=== PATIENT | male | born 1945 | race Caucasian/White ===

== ENCOUNTER 2020-07-01 10:30 | Emergency (ER) | payer MEDICAID, MEDICARE, OTHER ==
[~2020-07-01] VITALS: Ht 182.9 cm; Wt 86.6 kg
--- NOTE | 2020-07-01 10:30 | NUR ---
PT BIBA RA102 "[place] weak/dizzy/out of breath while walking to bus stop" PT IS AAOX3, NOT IN RESPIRATORY DISTRESS, HOOKED TO MANAGER OF ALLIED HEALTH SERVICES, KEPT RESTEDA ND COMFORTABLE. WILL CONTINUE TO MONITOR.
--- NOTE | 2020-07-01 10:40 | NUR ---
SEEN AND EXAMINED BY .
--- NOTE | 2020-07-01 10:50 | NUR ---
IV LINE ESTABLISHED BLOOD DRAWN AND SENT TO LAB.
--- NOTE | 2020-07-01 10:53 | NUR ---
URINAL GIVEN BUT UNABLE TO PROVIDE URINE SPECIMEN THIS TIME.
[2020-07-01 10:54] LABS: BASOPHILS # (AUTO) 0.1 /CMM (0.0-0.2); EOSINOPHILS % (AUTO) 0.4 % (0.0-6.0); HEMATOCRIT 43 % (39-51); HEMOGLOBIN 14.4 g/dL (13.5-17.5); LYMPHOCYTES # (AUTO) 1.1 /CMM (0.8-4.8); LYMPHOCYTES % (AUTO) 14.6 % (20.0-44.0); MEAN CORPUSCULAR HGB CONC 34 g/dl (31.0-36.0); MEAN CORPUSCULAR VOLUME 100 fL (80-96); MONOCYTES # (AUTO) 0.5 /CMM (0.1-1.30); MONOCYTES % (AUTO) 6.1 % (2.0-12.0); NEUTROPHILS # (AUTO) 5.9 /CMM (1.8-8.9); NEUTROPHILS % (AUTO) 77.9 % (43.0-81.0); PLATELET COUNT (AUTO) 284 /CMM (150-450); RED BLOOD CELL COUNT(AUTO) 4.29 MIL/uL (4.5-6.0); WHITE BLOOD COUNT (AUTO) 7.6 K/uL (4.3-11.0)
[2020-07-01] MEDS ORDERED: IV NS 0.9% 1,000 ML BAG IV ONE (11:00)
[2020-07-01 11:04] LABS: CALCIUM, SERUM 9.2 mg/dL (8.5-10.1); CARBON DIOXIDE 25 mmol/L (21-32); CHLORIDE 103 mmol/L (98-107); CREATININE 1.3 mg/dL (0.6-1.3); GLUCOSE 229 mg/dL (74-106); POTASSIUM 4.3 mmol/L (3.5-5.1); SODIUM SERUM 138 mmol/L (136-145); UREA NITROGEN, BLOOD 11 mg/dL (7-18)
[2020-07-01 11:09] LABS: ALANINE AMINOTRANSFERASE 17 U/L (12-78); ALBUMIN 3.6 g/dL (3.4-5.0); ALKALINE PHOSPHATASE 70 U/L (46-116); ASPARTATE AMINOTRANSFERASE 29 U/L (15-37); BILIRUBIN,DIRECT 0.3 mg/dL (0.0-0.2); BILIRUBIN,TOTAL 2.1 mg/dL (0.2-1.0); TOTAL PROTEIN, SERUM 6.6 g/dL (6.4-8.2)
--- NOTE | 2020-07-01 11:30 | NUR ---
CALLED LAB TO MAGNESIUM BLOOD TEST PER BRITTANI GOYAL.
--- NOTE | 2020-07-01 12:55 | NUR ---
PT AMBULATED ON STEADY GAIT W/O ASSIST. VERBALIZED FEELING BETTER THAN EARLIER. MD MADE AWARE.
--- NOTE | 2020-07-01 13:03 | NUR ---
Patient discharged to home in stable condition. Written and verbal after care instructions given. Patient verbalizes understanding of instruction. Pt ambulatory with a steady gait. Pt was provided with meal.
[2020-07-01 13:04] VITALS: BP 153/85
== END 2020-07-01 13:04 | disposition home or self-care (01) ==
LOC: ER 10:35
DX: E86.0 Dehydration (principal); R73.9 Hyperglycemia, unspecified; R53.1 Weakness; I10 Essential (primary) hypertension
CPT/HCPCS: 36415; 71045; 80048; 80076; 83735; 84484; 85025; 85730; 93005 ×2; 96360; 99285; J7030

== ENCOUNTER 2020-11-02 09:59 | Inpatient (IN) | payer MEDICARE, OTHER ==
[~2020-11-02] VITALS: Ht 188 cm; Wt 93.0 kg
--- NOTE | 2020-11-02 10:00 | NUR ---
KAMERON 881 FROM HOME C/O L FOOT INFECTION. PT IS AAOX4, NOT IN RESPIRATORY DISTRESS, HOOKED TO TINWARE LITHOGRAPH PRESS OPERATOR, KEPT RESTED AND COMFORTABLE. WILL CONTINUE TO MONITOR.
--- NOTE | 2020-11-02 10:16 | NUR ---
SEEN AND EXAMINED BY
[2020-11-02] MEDS ORDERED: PIPERACILLIN /TAZOBACTAM 3.375 G in IV D5W 50 ML IV ONE (10:30)
[2020-11-02] MEDS ORDERED: VANCOMYCIN 1 GM in IV D5W 250 ML IV ONE (10:30)
[2020-11-02 10:41] LABS: BASOPHILS # (AUTO) 0.3 /CMM (0.0-0.2); BASOPHILS % (AUTO) 1.7 % (0.0-2.0); EOSINOPHILS % (AUTO) 0.4 % (0.0-6.0); HEMATOCRIT 33 % (39-51); HEMOGLOBIN 10.9 g/dL (13.5-17.5); LYMPHOCYTES # (AUTO) 0.7 /CMM (0.8-4.8); LYMPHOCYTES % (AUTO) 3.7 % (20.0-44.0); MEAN CORPUSCULAR HGB CONC 33 g/dl (31.0-36.0); MEAN CORPUSCULAR VOLUME 96 fL (80-96); MONOCYTES % (AUTO) 5.4 % (2.0-12.0); NEUTROPHILS # (AUTO) 16.1 /CMM (1.8-8.9); NEUTROPHILS % (AUTO) 88.8 % (43.0-81.0); PLATELET COUNT (AUTO) 549 /CMM (150-450); RED BLOOD CELL COUNT(AUTO) 3.47 MIL/uL (4.5-6.0); WHITE BLOOD COUNT (AUTO) 18.2 K/uL (4.3-11.0)
[2020-11-02 10:48] LABS: CREATININE 0.9 mg/dL (0.6-1.3); POTASSIUM 3.6 mmol/L (3.5-5.1)
--- NOTE | 2020-11-02 10:52 | NUR ---
TANK MAKER WOOD AT BEDSIDE FOR XRAY.
--- NOTE | 2020-11-02 10:55 | NUR ---
CALLED PHARMACY FOR IV ANTIBIOTIC.
--- NOTE | 2020-11-02 11:03 | NUR ---
COVID SWAB OBTAINED AND SENT TO LAB.
[2020-11-02] MEDS ORDERED: ACET-868 PO (11:17)
--- NOTE | 2020-11-02 11:24 | NUR ---
MOVE PACKET TURNED IN, NURSING SUP NOTIFIED FOR BED REQUEST.
[2020-11-02] MEDS ORDERED: TEMAZEPAM 15 MG CAPSULE PO PRN (13:00)
[2020-11-02] MEDS ORDERED: MAGNESIUM HYDROXIDE 30 ML UDC PO PRN (13:00)
[2020-11-02] MEDS ORDERED: ACETAMINOPHEN 325 MG TABLET PO PRN (13:00)
[2020-11-02] MEDS ORDERED: DEXTROSE 50%-WATER 50 ML DISP.SYRIN IV PRN (13:00)
[2020-11-02] MEDS ORDERED: Z GUARD REMEDY 2 OZ OINT TP PRN (13:00)
[2020-11-02] MEDS ORDERED: ONDANSETRON HCL/PF 4 MG/2 ML VIAL IVP PRN (13:00)
--- NOTE | 2020-11-02 14:24 | NUR ---
PATIENT AMBULATORY WENT TO RESTROOM.
[2020-11-02] MEDS ORDERED: HYDROCODONE/APAP 5/325MG TABLET ONE (18:21)
[2020-11-02] MEDS: HYDROCODONE/APAP 5/325MG TABLET PO PRN ×2 (18:22→21:54)
[2020-11-02] MEDS: PIPERACILLIN /TAZOBACTAM 3.375 G in IV D5W 50 ML IV SCH (18:53)
[2020-11-02] MEDS: BLOOD SUGAR DIAGNOSTIC 1 EACH STRIP IN SCH ×2 (19:01→21:54)
[2020-11-02 19:25] LABS: EOSINOPHILS % (MANUAL) 1 % (0-4); LYMPHOCYTES % (MANUAL) 4 % (16-48); MONOCYTES % (MANUAL) 4 % (0-11.0); NEUTROPHILS % (MANUAL) 91 (42-76)
--- NOTE | 2020-11-02 20:18 | NUR ---
MS BED: 324-2
--- NOTE | 2020-11-02 20:25 | NUR ---
REPORT GIVEN TO BOONE
[2020-11-02 21:00] VITALS: BP 174/85
--- NOTE | 2020-11-02 21:06 | NUR ---
PT TRANSFERED. VSS.
--- NOTE | 2020-11-02 21:35 | NUR ---
RN NOTES RECEIVED PT. FROM ER WITH DX. OF LEFT FOOT CELLULITIS, A/OX4, NOT IN DISTRESS, ADMISSION INSTRUCTIONS WAS RENDERED, CALL LIGHT WITHIN REACH, SIDERAILSUPX2, CONTINUE TO MONITOR
--- NOTE | 2020-11-02 22:00 | NUR ---
RN NOTES COMPLAINED OF 5TH TOE PAIN- NORCO 1 TAB PO GIVEN ORDERED, V/S STABLE
[2020-11-02] MEDS: INSULIN REGULAR, HUMAN 100 UNIT/ML 3 ML VIAL SQ PRN (22:02)
[2020-11-02] MEDS: IV NS 0.9% 1,000 ML IV PRN (22:48)
[2020-11-02] MEDS: VANCOMYCIN 1 GM in IV D5W 250 ML IV SCH (22:49)
[2020-11-03] VITALS (16 sets, daily range): BP systolic 141–166; BP diastolic 63–90
[2020-11-03] MEDS: PIPERACILLIN /TAZOBACTAM 3.375 G in IV D5W 50 ML IV SCH ×4 (00:02→19:29)
[2020-11-03] MEDS: HYDROCODONE/APAP 5/325MG TABLET PO PRN ×3 (01:59→23:32)
--- NOTE | 2020-11-03 02:00 | NUR ---
RN NOTES COMPLAINED OF PAIN ON HIS LEFT FOOT 5TH TOE GANGRENE , NORCO 1 TAB PO GIVEN ORDERED, V/S STABLE
--- NOTE | 2020-11-03 05:33 | NUR ---
RN NOTES COMPLAINED OF HEADACHE- TYLENOL 650 MG PO GIVEN ORDERED
[2020-11-03] MEDS: INSULIN REGULAR, HUMAN 100 UNIT/ML 3 ML VIAL SQ PRN ×2 (06:14→22:12)
--- NOTE | 2020-11-03 06:27 | NUR ---
RN NOTES PT.COMPLAINED OF LEFT FOOT PAIN0 NORCO 1 TAB PO GIVEN ORDERED, MORNING CARE RENDERED, WILL ENDORSE TO DAYSHIFT NURSE TO GET A LOVENOX ORDER FOR DVT PROPHYLAXIS, PT. IS NOT ON DISTRESS, CALL LIGHT WITHIN REACH, SIDERAILSUPX2, PT.NEEDS ATTENDED
[2020-11-03 07:19] LABS: BASOPHILS # (AUTO) 0.1 /CMM (0.0-0.2); BASOPHILS % (AUTO) 0.8 % (0.0-2.0); EOSINOPHILS % (AUTO) 1.1 % (0.0-6.0); HEMATOCRIT 31 % (39-51); HEMOGLOBIN 10.4 g/dL (13.5-17.5); LYMPHOCYTES # (AUTO) 1.1 /CMM (0.8-4.8); LYMPHOCYTES % (AUTO) 6.8 % (20.0-44.0); MEAN CORPUSCULAR HGB CONC 34 g/dl (31.0-36.0); MEAN CORPUSCULAR VOLUME 94 fL (80-96); MONOCYTES % (AUTO) 6.2 % (2.0-12.0); NEUTROPHILS # (AUTO) 13.3 /CMM (1.8-8.9); NEUTROPHILS % (AUTO) 85.1 % (43.0-81.0); PLATELET COUNT (AUTO) 521 /CMM (150-450); WHITE BLOOD COUNT (AUTO) 15.7 K/uL (4.3-11.0)
--- NOTE | 2020-11-03 07:48 | NUR ---
MS HOPPER OPEN NOTES PATIENT IS A/O X 4 WITH NO SIGNS OF DISTRESS IN ROOM AIR. NO COMPLAIN OF PAIN AT THIS MOMENT. IV R AC #18G RUNNING NS @ 75 ML/HR. NO COMPLAIN OF PAIN AT THIS TIME. SAFETY MEASURES ARE APPLIED. BED IS IN LOWEST LOCKED POSITION WITH SIDE RAILS UP X 2 FOR SAFETY. CALL LIGHT IS WITHIN REACH. WILL CONTINUE TO MONITOR.
[2020-11-03 07:55] LABS: CALCIUM, SERUM 8.1 mg/dL (8.5-10.1); CREATININE 1.1 mg/dL (0.6-1.3); MAGNESIUM 2.1 mg/dL (1.8-2.4); POTASSIUM 3.4 mmol/L (3.5-5.1)
[2020-11-03 08:02] LABS: THYROID STIMULATING HORMONE 2.298 uIU/mL (0.358-3.74)
[2020-11-03] MEDS: BLOOD SUGAR DIAGNOSTIC 1 EACH STRIP IN SCH ×4 (08:12→22:17)
--- NOTE | 2020-11-03 08:58 | NUR ---
WOUND CARE CONSULT: PT PRESENTS WITH REDNESS TO LEFT FOOT AND DRY BLACK NECROTIC TISSUE TO LEFT 5TH TOE, PRESENT ON ADMISSION. ODOR NOTED. DR DEY NOTIFIED OF DPM CONSULT REQUEST. PT IS INDEPENDENT WITH BED MOBILITY AND IS CONTINENT. MD IN AGREEMENT WITH PLAN OF CARE.
[2020-11-03] MEDS ORDERED: POTASSIUM CHLORIDE 20 MEQ TAB.PRT.SR PO SCH (10:30)
[2020-11-03] MEDS ORDERED: LIDOCAINE 1% INJ 50 ML MDV IJ ONE (11:30)
[2020-11-03] MEDS: MORPHINE SULFATE INJ 2 MG/ML DISP.SYRIN IV PRN (11:51)
[2020-11-03] MEDS: VANCOMYCIN 1 GM in IV D5W 250 ML IV SCH ×2 (11:59→22:59)
[2020-11-03] MEDS ORDERED: IV NS 0.9% 1,000 ML ONE (12:52)
[2020-11-03] MEDS ORDERED: IODIXANOL 150 ML IV ONE ×2 (12:53→16:46)
--- NOTE | 2020-11-03 14:20 | NUR ---
PATIENT LEFT TO CNP.
[2020-11-03] MEDS ORDERED: LIDOCAINE HCL/MPF 1% 30 ML VIAL IJ ONE (14:59)
[2020-11-03] MEDS ORDERED: MIDAZOLAM HCL 2 MG/2ML VIAL ONE ×2 (15:03→16:39)
[2020-11-03] MEDS ORDERED: FENTANYL PF 100MCG/2ML AMPUL ONE (15:04)
[2020-11-03] MEDS ORDERED: HEPARIN SODIUM, PORCINE 1,000 UNIT/ML VIAL ONE ×2 (15:41→17:16)
[2020-11-03] MEDS ORDERED: IODIXANOL 320MG/ML 50 ML IV ONE (15:48)
[2020-11-03] MEDS ORDERED: CLOPIDOGREL BISULFATE 300 MG TABLET ONE (16:05)
[2020-11-03] MEDS ORDERED: ASPIRIN 325 MG TABLET ONE (16:05)
[2020-11-03] MEDS ORDERED: hydrALAZINE HCL IV 20 MG VIAL ONE (16:38)
[2020-11-03] MEDS ORDERED: diphenhydrAMINE HCL 50 MG/ML VIAL ONE (16:52)
[2020-11-03] MEDS ORDERED: NITROGLYCERIN ICAR 1,000 MCG/10 ML VIAL ICAR ONE ×2 (17:15→17:37)
[2020-11-03] MEDS ORDERED: IODIXANOL 320MG/ML 0 ML IV ONE (17:40)
[2020-11-03] MEDS ORDERED: HEPARIN INFUSION/D5W 500 ML IV ONE (17:47)
--- NOTE | 2020-11-03 18:15 | NUR ---
UNABLE TO DO BLOOD SUGAR CHECK, PATIENT IS STILL CURRENTLY IN SAND BLASTER.
--- NOTE | 2020-11-03 19:09 | NUR ---
PATIENT TRANSFERRED TO ICU GAVE REPORT TO WARD URIARTE FOR CONTINUITY OF CARE. ALL BELONGINGS WERE TAKEN TO PATIENT'S ROOM ICU.
--- NOTE | 2020-11-03 19:30 | NUR ---
RECEIVED PT FROM ACUTE CARE PHYSICIAN FOR STENT PLACEMENT, IN STABLE CONDITION. PT IS ALERT AND VERBALLY RESPONSIVE, ORIENTED X4. NOT IN ANY ACUTE DISTRESS. ON HEPARIN DRIP ORDERED. ALL POST OP ORDERS FAXED TO PHARMACY. IV#18 ON RIGHT AC AND IV#18 ON LEFT FOREARM INTACT AND FLUSHED WELL. WILL ENDORSE TO NEXT SHIFT FOR ARELY.
--- NOTE | 2020-11-03 19:35 | NUR ---
RN NOTE RECEIVED PT IN BED SLEEPING IN SEMIFOWLER'S POSITION. RESPIRATIONS EVEN AND UNLABORED VIA ROOM AIR. ON BEDSIDE MONITOR SHOWING STABLE VITAL SIGNS. ATTEMPTED TO WAKE PT UP MULTIPLE TIMES BUT PT DID NOT RESPOND AND CONTINUED TO SLEEP. APPLIED STERNAL RUB TO PATIENT TO WHICH PT WOKE UP ANGRILY. PT IS ALERT AND ORIENTED X 4, DENIES PAIN OR DISCOMFORT. NOTED NS @75ML/HOUR RUNNING ON LEFT FORE ARM IV AND WITH HEPARIN DRIP RUNNING AT 1550 UNITS PER HOUR VIA RIGHT AC IV. IV LINES PATENT AND WITHOUT COMPLICATIONS NOTED AT SITE. POST FEMORAL CATH SITE WITH INTACT DRESSING. NO BLEEDING NOTED. LEFT FOOT WRAPPED IN KERLIX. WEAK PULSE PRESENT BUT SKIN IN WARM WITH INTACT SENSATION. PT ABLE TO MOVE FOOT AND WIGGLE TOES UPON COMMAND. PLAN OF CARE DISCUSSED. NSR ON THE MONITOR, CALL LIGHT WITHIN REACH, SAFETY MEASURES IN PLACE PER PROTOCOL, BED ALARM ON, SIDE RAILS UP X 2, BED LOCKED AND IN LOW POSITION, WILL MONITOR PATIENT CLOSELY.
[2020-11-03] MEDS: IV NS 0.9% 1,000 ML IV PRN (19:49)
[2020-11-03] MEDS: HEPARIN INFUSION/D5W 500 ML IV PRN (20:58)
[2020-11-03] MEDS ORDERED: ENOXAPARIN SODIUM 80 MG/0.8 ML DISP.SYRIN SQ SCH (21:00)
[2020-11-04] VITALS (38 sets, daily range): BP systolic 133–179; BP diastolic 61–99
[2020-11-04] MEDS: PIPERACILLIN /TAZOBACTAM 3.375 G in IV D5W 50 ML IV SCH ×5 (00:03→23:33)
--- NOTE | 2020-11-04 00:15 | NUR ---
RN NOTE PTT STILL NOT DRAWN. CALLED LAB AND STATES THEY WILL COME SOON THEY CAN.
--- NOTE | 2020-11-04 00:38 | NUR ---
RN NOTE MADE FOLLOW UP CALL TO LAB, STATES THEY WILL COME SOON THEY CAN.
--- NOTE | 2020-11-04 01:55 | NUR ---
RN NOTE PTT RESULT CAME BACK 134.6. HEPARIN DRIP STOPPED. PAGED GLAZIER SUPERVISOR. NO BLEEDING NOTED. Addendum: 11/04/20 at 0319 by RAFA SNOW RN @0210 DR. VALENZUELA WAS NOTIFIED WHO STATED THAT [facility] IS THE ONE TO MAKE ADJUSTMENTS AND THAT WE SHOULD NOT BE PAGING IN THE MIDDLE OF THE NIGHT FOR THIS. STATES TO HOLD HEPARIN DRIP AND CALL [facility]. @0220 SPOKE TO LEAH FROM [facility] WHO STATES THAT THEY CANNOT MAKE ADJUSTMENTS ACCORDING TO THEIR PROTOCOL FOR PTT OF 134.6 AND THAT IS THE ONE TO MAKE ADJUSTMENTS. @0230 DR. VALENZUELA WAS PAGED AGAIN. AWAITING CALL BACK.
--- NOTE | 2020-11-04 03:25 | NUR ---
RN NOTE DR. VALENZUELA CALLED BACK WITH ORDER TO RESTART HEPARIN DRIP AT 0600 AT 775UNITS/HOUR then repeat ptt at 0700. ORDER NOTED AND CARRIED OUT.
[2020-11-04] MEDS: HYDROCODONE/APAP 5/325MG TABLET PO PRN ×4 (04:15→21:19)
[2020-11-04] MEDS: IV NS 0.9% 1,000 ML IV PRN ×2 (04:41→21:26)
[2020-11-04 05:15] LABS: BASOPHILS # (AUTO) 0.2 /CMM (0.0-0.2); BASOPHILS % (AUTO) 0.9 % (0.0-2.0); HEMATOCRIT 30 % (39-51); HEMOGLOBIN 9.8 g/dL (13.5-17.5); LYMPHOCYTES # (AUTO) 1.3 /CMM (0.8-4.8); LYMPHOCYTES % (AUTO) 6.8 % (20.0-44.0); MEAN CORPUSCULAR HGB CONC 33 g/dl (31.0-36.0); MEAN CORPUSCULAR VOLUME 95 fL (80-96); MONOCYTES # (AUTO) 1.4 /CMM (0.1-1.30); MONOCYTES % (AUTO) 7.1 % (2.0-12.0); NEUTROPHILS # (AUTO) 16.2 /CMM (1.8-8.9); NEUTROPHILS % (AUTO) 84.2 % (43.0-81.0); PLATELET COUNT (AUTO) 502 /CMM (150-450); RED BLOOD CELL COUNT(AUTO) 3.12 MIL/uL (4.5-6.0); WHITE BLOOD COUNT (AUTO) 19.2 K/uL (4.3-11.0)
[2020-11-04 05:18] LABS: CALCIUM, SERUM 7.9 mg/dL (8.5-10.1); CREATININE 1.3 mg/dL (0.6-1.3); MAGNESIUM 2.2 mg/dL (1.8-2.4); PHOSPHORUS 3.4 mg/dL (2.5-4.9); POTASSIUM 3.5 mmol/L (3.5-5.1)
[2020-11-04 05:32] LABS: THYROID STIMULATING HORMONE 2.259 uIU/mL (0.358-3.74); URIC ACID 4.7 mg/dL (2.6-7.2)
--- NOTE | 2020-11-04 07:07 | NUR ---
RN NOTE NO ACUTE CHANGES OBSERVED OVERNIGHT. PT SLEEPING IN BED COMFORTABLY BUT EASILY AROUSABLE. ON ROOM AIR. RESPIRATIONS UNLABORED. NO SIGNS OF DISCOMFORT. VITAL SIGNS VIA BEDSIDE MONITOR STABLE. ONGOING HEPARIN DRIP INFUSING. NO SIGNS OF UNUSUAL BLEEDING NOTED. WITH NS @75ML/HOUR RUNNING ORDERED. IV LINES BOTH PATENT AND INTACT WITHOUT SIGNS OF COMPLICATIONS NOTED AT SITES. URINAL AT BEDSIDE REACHABLE. ALL NEEDS MET AND ATTENDED TO. SAFETY MEASURES IN PLACE PER PROTOCOL, ENDORSED TO MORNING RN FOR ARELY.
--- NOTE | 2020-11-04 07:30 | NUR ---
PT. AWAKE, ORIENTED , DENIES DISCOMFORT AT THIS TIME. SR 80'S ON MONITOR. SBP>150. PN RA WITH SATS 98%. ONGOING HEPARIN DRIP AT 775 U/HR, NO SIGNS OF BLEEDING. RIGHT FEMORAL SHEATH INPLACED, DRESSING INTACT WITH NO SIGNS OF BLEEDING. LEFT FOOT DRESSING INTACT, CLEAN AND DRY. PULSES PALPABLE.
[2020-11-04] MEDS: BLOOD SUGAR DIAGNOSTIC 1 EACH STRIP IN SCH ×4 (08:27→21:29)
[2020-11-04] MEDS: CLOPIDOGREL BISULFATE 75 MG TABLET PO SCH (08:51)
[2020-11-04] MEDS: ASPIRIN 325 MG TABLET PO SCH (08:51)
[2020-11-04] MEDS: INSULIN REGULAR, HUMAN 100 UNIT/ML 3 ML VIAL SQ PRN ×3 (08:55→21:30)
--- NOTE | 2020-11-04 09:30 | NUR ---
FFUP PTT- NO RESULTS YET AT THIS TIME.
[2020-11-04 10:09] LABS: IRON, SERUM 24 ug/dl (50-175); TOTAL IRON BINDING CAPACITY 123 ug/dl (250-450)
--- NOTE | 2020-11-04 11:00 | NUR ---
PTT -44.1- PER PHARMACIST JOLIE, YARIEL FURTHER BOLUS AND DOSE ADJUSTMENT AT THIS TIME . PTT ORDERED FOR 12 NOON. AWAITS RESULTS FOR ADJUSTMENT.
[2020-11-04 11:02] LABS: FERRITIN 817 ng/mL (8-388)
[2020-11-04] MEDS ORDERED: HEPARIN SODIUM, PORCINE 5000 UNITS/1 ML VIAL IV ONE ×2 (11:30→14:00)
--- NOTE | 2020-11-04 11:45 | NUR ---
C/O LEFT FOOT PAIN-REQUESTED FOR NORCO -GIVEN ORDERED PRN.
[2020-11-04] MEDS: VANCOMYCIN 1 GM in IV D5W 250 ML IV SCH ×2 (11:46→22:30)
--- NOTE | 2020-11-04 12:45 | NUR ---
SPOKE TO DR. DEY RE: MRI ORDER. PER MD-OKAY TO RESKED MRI ON FRIDAY POST PROCEDURE. SPOKE TO HEAD HOST/HOSTESS.
--- NOTE | 2020-11-04 14:00 | NUR ---
PTT-42.7-HEPARIN 3400UNITS BOLUS GIVEN HEPARIN DRIP INCREASED TO 925 U/HR PER PROTOCOL. PTT AT 1999.
--- NOTE | 2020-11-04 15:45 | NUR ---
SEEN AND EXAMINED BY DR. SVETA GOYAL SPOKE TO PATIENT REGARDING CONDITION AND PLAN OF CARE.
--- NOTE | 2020-11-04 16:15 | NUR ---
SEEN AND EXAMINED BY GAEL BARRIGA-PATIENT UPDATE GIVEN.
--- NOTE | 2020-11-04 18:45 | NUR ---
PATIENT WITHOUT SIGNIFICANT CHANGE. NO SIGNS OF BLEEDING. HEPARIN GTT AT 925 U/HR PER PROTOCOL. NORCO PRN FOR LEFT FOOT PAIN CONTROLLED. SATS 100% ON RA.
--- NOTE | 2020-11-04 19:15 | NUR ---
"RN OPENING NOTES: RECEIVED PT A/OX4 IN BED RESTING COMFORTABLY. PATIENT IN NO S/SX OF ACUTE DISTRESS AT THIS TIME. NO SOB NOTED. PATIENT'S BREATHING IS EVEN AND UNLABORED. PATIENT IS ON ROOM AIR; TOLERATING WELL; 02 SAT AT100% AT THE TIME OF RECEIVED. PATIENT ON TELE MONITORING READING SINUS RHYTHM HR IS @70s AT THE TIME OF RECEIVED. NOTED IV SITE ON R AC # 18 AND L FA ;PATENT, INTACT AND FLUSHING WELL; NO S/S OF INFECTION OR INFILTRATION. WITH IV FLUID RUNNING ORDERED. PATIENT HAS ONGOING HEPARIN DRIP @925 UNITS/HR | 18.5MLS/HR; INFUSING PER PROTOCOL. PATIENT IS ON CONSISTENT CARB DIET. PT AMBULATORY WITH ASSIST. PATIENT HAS L 5TH TOE (GANGRENE) AND l SACRAL REDNESS ; WILL ADDRESS PER WOUND CARE ORDER. SAFETY MEASURES HAVE BEEN PROVIDED AND IMPLEMENTED. PATIENT BED ALARM IS ON. HEAD OF BED ELEVATED. BED IS LOCKED, IN LOWEST POSITION AND SIDE RAILS UP. CALL LIGHT WITHIN REACH OF THE PATIENT. APPLICABLE ISOLATION PRECAUTIONS IN PLACE. WILL CONTINUE TO MONITOR AND REASSESS FOR ANY CHANGES AND WILL CARRY OUT ANY ONGOING AND ACTIVE MD ORDER."
--- NOTE | 2020-11-04 20:15 | NUR ---
RN NOTES CALLED LAB TO F/U FOR THE SCHEDULED BLOOD DRAW FOR APTT @1999, S/W MAURY HE SAID HE WILL ENDORSE TO STAFF. VISUAL COMMUNICATIONS INSTRUCTOR MADE AWARE.
--- NOTE | 2020-11-04 21:15 | NUR ---
RN NOTES AT 2044 APPT RESULT CAME OUT 48.4, NO CHANGES TO HEPARIN INFUSION DOSE RATE PER PROTOCOL; CURRENT DOSE RATE IS @ 925UNITS/HR; 18.5MLS/HR. STABILIZER OPERATOR MADE AWARE. WILL CONTINUE TO MONITOR AND ASSESS THROUGHOUT THE SHIFT.
--- NOTE | 2020-11-04 22:00 | NUR ---
RN NOTES PATIENT REMAINS IN NO ACUTE RESPIRATORY DISTRESS AT THIS TIME, NO CHANGES TO CONDITION/STATUS. CHANNELING MACHINE OPERATOR WELL AWARE. WILL CONTINUE TO MONITOR AND REASSESS FOR ANY CHANGES THROUGHOUT THE SHIFT
[2020-11-05] VITALS (35 sets, daily range): BP systolic 121–176; BP diastolic 62–104
--- NOTE | 2020-11-05 00:05 | NUR ---
RN NOTES WOUND CARE RENDERED; PATIENT TOLERATED WELL. V/S WNL. BRAZER CONTROLLED ATMOSPHERIC FURNACE MADE AWARE. WILL CONTINUE TO MONITOR AND REASSESS THROUGHOUT THE SHIFT.
[2020-11-05] MEDS: HYDROCODONE/APAP 5/325MG TABLET PO PRN ×4 (01:19→16:01)
--- NOTE | 2020-11-05 01:30 | NUR ---
CHANGE OF LINE NOTED IV LINE ON R AC TO BE DISLODGED AND NON-PATENT. FACILITATED CHANGE AND REINSERTION OF IV LINE @ L HAND #22. MAINTAINER SEWER AND WATERWORKS MADE AWARE. WILL CONTINUE TO MONITOR AND ASSESS
--- NOTE | 2020-11-05 02:40 | NUR ---
RN NOTES COMMUNICATED WITH NIRMALA GOYAL AND INFORMED MEIR THAT PT HAS EPISODES OF HIGH BP AND NO PRN MEDS TO ADDRESS HIGH BLOOD PRESSURE ALSO INFORMED MD THAT PT DONT TAKE ANY BP MEDS. NIRMALA GOYAL ORDERED: CLONIDINE 0.1MG Q6 PRN SBP>150. ORDER SECURED AND WILL CARRY OUT REQUESTED . PRESSER HAND MADE AWARE. WILL CONTINUE TO MONITOR AND ASSESS THROUGHTOUT THE SHIFT.
[2020-11-05] MEDS: CLONIDINE HCL 0.1 MG TABLET PO PRN ×2 (04:13→17:10)
--- NOTE | 2020-11-05 04:15 | NUR ---
RN NOTES PATIENT BLOOD PRESSURE @0330 : 162/80 AND AT 399 156/77, ADMINISTERED CLONIDINE 0.1MG Q6 PRN SBP>150. SKATING RINK ICE MAKER MADE AWARE. WILL CONTINUE TO MONITOR AND ASSESS THROUGHOUT THE SHIFT. Addendum: 11/05/20 at 0505 by JIMY ELAINE RN RN RE-CHECKED FOR PT'S BP FOLLOWS: 0430: 151/70 AND 0500: 149/74. WILL CONTINUE TO MONITOR AND ASSESS THROUGHOUT THE SHIFT.
--- NOTE | 2020-11-05 05:00 | NUR ---
RN NOTES PATIENT REMAINS IN NO ACUTE RESPIRATORY DISTRESS AT THIS TIME, NO CHANGES TO CONDITION/STATUS. DIRECTOR OF INCOME TAX WELL AWARE. WILL CONTINUE TO MONITOR AND REASSESS FOR ANY CHANGES THROUGHOUT THE SHIFT
--- NOTE | 2020-11-05 05:00 | NUR ---
RN NOTES NO CHANGE IN PATIENT CONDITION AT THIS TIME PATIENT VITALS STABLE, NO SIGNS OF ACUTE RESPIRATORY DISTRESS. JOE HOPPER MADE AWARE. WILL CONTINUE TO MONITOR AND REASSESS FOR ANY CHANGES THROUGHOUT THE SHIFT. RT OBTAINED SPECIMEN FOR RESPIRATORY CULTURE C GRAM STAIN. JOE HOPPER MADE AWARE. Addendum: 11/05/20 at 0511 by JIMY ELAINE RN ERROR : WRONG PT'S CHART -PLEASE DISREGARD NOTES
[2020-11-05] MEDS: HEPARIN INFUSION/D5W 500 ML IV PRN (05:01)
[2020-11-05] MEDS: PIPERACILLIN /TAZOBACTAM 3.375 G in IV D5W 50 ML IV SCH ×4 (05:03→23:40)
[2020-11-05 05:28] LABS: BASOPHILS # (AUTO) 0.1 /CMM (0.0-0.2); BASOPHILS % (AUTO) 0.4 % (0.0-2.0); EOSINOPHILS % (AUTO) 2.3 % (0.0-6.0); HEMATOCRIT 26 % (39-51); HEMOGLOBIN 8.8 g/dL (13.5-17.5); LYMPHOCYTES # (AUTO) 1.2 /CMM (0.8-4.8); LYMPHOCYTES % (AUTO) 6.2 % (20.0-44.0); MEAN CORPUSCULAR HGB CONC 33 g/dl (31.0-36.0); MEAN CORPUSCULAR VOLUME 96 fL (80-96); MONOCYTES # (AUTO) 1.4 /CMM (0.1-1.30); MONOCYTES % (AUTO) 7.3 % (2.0-12.0); NEUTROPHILS # (AUTO) 16.2 /CMM (1.8-8.9); NEUTROPHILS % (AUTO) 83.8 % (43.0-81.0); PLATELET COUNT (AUTO) 439 /CMM (150-450); RED BLOOD CELL COUNT(AUTO) 2.75 MIL/uL (4.5-6.0); WHITE BLOOD COUNT (AUTO) 19.4 K/uL (4.3-11.0)
[2020-11-05 05:44] LABS: CARBON DIOXIDE 18 mmol/L (21-32); CHLORIDE 95 mmol/L (98-107); CREATININE 2.4 mg/dL (0.6-1.3); GLUCOSE 146 mg/dL (74-106); POTASSIUM 3.3 mmol/L (3.5-5.1); SODIUM SERUM 129 mmol/L (136-145); UREA NITROGEN, BLOOD 19 mg/dL (7-18)
--- NOTE | 2020-11-05 06:00 | NUR ---
RN NOTES AT 0550 PTT RESULT CAME OUT 31.6, TITRATED DOSA RATE PER HEPARIN PROTOCOL (25-34 SECONDS, GIVE BLOUS OF 6800U AND INCREASED DRIP BY 4 UNITS/KG/D=150T/H. PREVIOUS DOSE RATE IS 925U/HR--> 1275U/HR. SENIOR SALES ASSISTANT MADE AWARE. WILL SECURE ORDER FOR REPEAT PTT AFTER 6 HOURS.
[2020-11-05] MEDS ORDERED: HEPARIN SODIUM, PORCINE 5000 UNITS/1 ML VIAL ONE (06:02)
--- NOTE | 2020-11-05 06:55 | NUR ---
RN CLOSING NOTES PATIENT REMAINS IN ROOM IN NO SIGNS OF RESPIRATORY DISTRESS. PATIENT SATURATING 100% OF 02. VITAL SIGNS WNL. IV LINE MAINTAINED, INTACT, PATENT AND FLUSHING, NO SITE REDNESS OR INFILTRATION. SAFETY PRECAUTIONS IN PLACE AND COMFORT MEASURES RENDERED. BED IN LOWEST POSITION, CALL LIGHT WITHIN REACH, BREAKS ON, SIDE RAILS UP. ALL NEEDS ATTENDED, MEDICATIONS GIVEN SCHEDULED AND ORDERED ; SHIFT ASSESSMENT/BEDBATH/SKIN CARE DONE. PATIENT KEPT CLEAN AND DRY. WILL ENDORSE TO INCOMING SHIFT FOR ARELY WITH ALL PERTINENT INFO REGARDING PATIENT STATUS.
--- NOTE | 2020-11-05 08:00 | NUR ---
PATIENT AWAKE, ORIENTED, NO VERBAL COMPLAINTS AT THIS TIME. REMAINS ON RA WITH GOOD OXYGENATION. NO RESP. DISCOMFORT. SR ON MONITOR. RIGHT FEMORAL SHEATH IN PLACE WITHOUT SIGNS OF BLEEDING. ONGOING HEPARIN GTT AT 1275 U/HR PER PROTOCOL. PTT AT 12 NOOM SCHEDULED.
[2020-11-05] MEDS: BLOOD SUGAR DIAGNOSTIC 1 EACH STRIP IN SCH ×4 (08:52→22:17)
[2020-11-05] MEDS: CLOPIDOGREL BISULFATE 75 MG TABLET PO SCH (08:56)
[2020-11-05] MEDS: ASPIRIN 325 MG TABLET PO SCH (08:57)
[2020-11-05 10:26] LABS: CALCIUM, SERUM 7.6 mg/dL (8.5-10.1); CARBON DIOXIDE 21 mmol/L (21-32); CHLORIDE 94 mmol/L (98-107); CREATININE 2.7 mg/dL (0.6-1.3); GLUCOSE 152 mg/dL (74-106); POTASSIUM 3.2 mmol/L (3.5-5.1); SODIUM SERUM 130 mmol/L (136-145); UREA NITROGEN, BLOOD 20 mg/dL (7-18)
[2020-11-05 10:32] LABS: ALANINE AMINOTRANSFERASE 13 U/L (12-78); ALBUMIN 1.9 g/dL (3.4-5.0); ALKALINE PHOSPHATASE 73 U/L (46-116); ASPARTATE AMINOTRANSFERASE 15 U/L (15-37); BILIRUBIN,TOTAL 0.4 mg/dL (0.2-1.0); TOTAL PROTEIN, SERUM 5.8 g/dL (6.4-8.2)
--- NOTE | 2020-11-05 11:00 | NUR ---
SEEN BY GAEL BARRIGA-HOSPITALIST AT BEDSIDE. SPOKE TO PATIENT REGARDING PLAN OF CARE. DR. DOUGHERTY AT BEDSIDE FOR RENAL CONSULT RE: WORSENING RENAL FUNCTION.
--- NOTE | 2020-11-05 11:20 | NUR ---
HOSPITALIST MADE AWARE OF INCREASED SBP>170.
[2020-11-05] MEDS: VANCOMYCIN 1 GM in IV D5W 250 ML IV SCH ×2 (11:56→23:00)
--- NOTE | 2020-11-05 13:20 | NUR ---
PTT 170. SPOKE TO DR. VILLA RE: RESULTS. DISCONTINUE HEPARIN DRIP. PTT AT 1800. CONTINUE TO MONITOR Q6H UNTIL PTT IS LESS THAN 45 SECONDS. IF LESS THAN 45 SECONDS-CONNECT RIGHT FEMORAL SHEATH TO SALINE PRESSURE BAG FOR CONTINUOUS FLUSH.
[2020-11-05] MEDS: INSULIN REGULAR, HUMAN 100 UNIT/ML 3 ML VIAL SQ PRN ×3 (13:45→22:18)
--- NOTE | 2020-11-05 16:00 | NUR ---
PATIENT COMPLAINED OF LEFT FOOT PAIN. BILATERAL HEELS ELEVATED WITH PILLOWS.NORCO 1 TAB PO GIVEN ORDERED PRN FOR PAIN LEVEL 6.
[2020-11-05] MEDS: IV NS 0.9% 1,000 ML IV PRN (17:39)
--- NOTE | 2020-11-05 18:00 | NUR ---
RIGHT FEMORAL SHEATH INPLACED WITHOUT SIGNS OF BLEEDING.
--- NOTE | 2020-11-05 19:10 | NUR ---
PTT RESULT FOR 1800 STILL PENDING. PATIENT REPORTED OFF TO WARD MADERA. TAX ASSISTANT ED MADE AWARE OF MD ORDER FOR LESS THAN 45 SECONDS PTT.
--- NOTE | 2020-11-05 19:40 | NUR ---
RN OPENING NOTES, PATIENT IN BED, BREATHING EVEN AND UNLABORED, NO SOB/ ACUTE DISTRESS NOTED WITH O2 SAT LEVEL 100% AT ROOM AIR, NOTED WITH HIGH BLOOD PRESSURE, WILL FOLLOW UP MEDICATION GIVEN PER PRIOR NURSE EARLIER FOR THAT, LEFT HAND AND FA IV LINE PATENT AND INTACT AND IVF INFUSING WELL AND PATIENT TOLERATED WELL, NO S/S OF INFILTRATION OR ABNORMALITY NOTED, ALL SAFETY PRECAUTIONS IN PLACE, BED LOCKED AND LOWEST POSITION, CALL LIGHT WITHIN REACH, SIDE RAILS UP X2, WILL CONTINUE TO MONITOR CLOSELY, AWAITING FOR PTT RESULTS.
[2020-11-05] MEDS: MORPHINE SULFATE INJ 2 MG/ML DISP.SYRIN IV PRN (20:13)
--- NOTE | 2020-11-05 20:25 | NUR ---
RN NOTES, PATIENT COMPLAINED OF 8/10 PAIN IN LEFT FOOT,REPOSITIONED/OFFLOADING PROVIDED FOR COMFORT AND PRN MORPHINE ADMINISTERED ORDERED. ALSO RESULT FOR PTT AVAILABLE AT THIS TIME 33.3 AND ORDERS < IF LESS THAN 45 SECONDS CONNECT RIGHT FEMORAL SHEATH TO SALINE PRESSURE BAG FOR CONTINUOUS FLUSH> FOLLOWED, NOTED AND CARRIED OUT, NO BLEEDING OR ABNORMALITY NOTED AT SITE, WILL CONTINUE TO MONITOR CLOSELY.
--- NOTE | 2020-11-05 23:18 | NUR ---
RN NOTES, HOLD DOSE FOR VANCOMYCIN AT THIS TIME DUE TO VANCO THROUGH 37, WILL CONTINUE TO MONITOR CLOSELY.
[2020-11-06] VITALS (28 sets, daily range): BP systolic 136–188; BP diastolic 50–102
[2020-11-06] MEDS: HYDROCODONE/APAP 5/325MG TABLET PO PRN (02:35)
[2020-11-06 03:05] LABS: OSMOLALITY,URINE 217 mOS/kg (340-1090)
[2020-11-06 03:14] LABS: URINE SODIUM, RANDOM 8 mmol/l (40-220)
[2020-11-06] MEDS: MORPHINE SULFATE INJ 2 MG/ML DISP.SYRIN IV PRN ×3 (04:03→18:33)
[2020-11-06 05:03] LABS: BASOPHILS % (AUTO) 0.2 % (0.0-2.0); EOSINOPHILS % (AUTO) 2.8 % (0.0-6.0); HEMATOCRIT 26 % (39-51); HEMOGLOBIN 8.6 g/dL (13.5-17.5); LYMPHOCYTES % (AUTO) 6.7 % (20.0-44.0); MEAN CORPUSCULAR HGB CONC 33 g/dl (31.0-36.0); MEAN CORPUSCULAR VOLUME 95 fL (80-96); MONOCYTES # (AUTO) 1.2 /CMM (0.1-1.30); MONOCYTES % (AUTO) 7.6 % (2.0-12.0); NEUTROPHILS # (AUTO) 12.8 /CMM (1.8-8.9); NEUTROPHILS % (AUTO) 82.7 % (43.0-81.0); PLATELET COUNT (AUTO) 429 /CMM (150-450); RED BLOOD CELL COUNT(AUTO) 2.75 MIL/uL (4.5-6.0); WHITE BLOOD COUNT (AUTO) 15.5 K/uL (4.3-11.0)
[2020-11-06 05:23] LABS: CALCIUM, SERUM 7.8 mg/dL (8.5-10.1); CARBON DIOXIDE 18 mmol/L (21-32); CHLORIDE 95 mmol/L (98-107); CREATININE 3.3 mg/dL (0.6-1.3); GLUCOSE 111 mg/dL (74-106); PHOSPHORUS 5.3 mg/dL (2.5-4.9); POTASSIUM 3.2 mmol/L (3.5-5.1); SODIUM SERUM 129 mmol/L (136-145); UREA NITROGEN, BLOOD 24 mg/dL (7-18)
[2020-11-06 05:28] LABS: URIC ACID 5.6 mg/dL (2.6-7.2)
[2020-11-06] MEDS: PIPERACILLIN /TAZOBACTAM 3.375 G in IV D5W 50 ML IV SCH ×3 (05:28→18:23)
--- NOTE | 2020-11-06 05:55 | NUR ---
RN NOTES, INFORMED DR VALENZUELA ASSISTANT SALES DIRECTOR THAT PATIENT IS HAVING FREQUENT BIGEMINY AND TRIGEMINY ON AND OFF, AND REPORTED ALSO POTASSIUM THIS MORNING 3.2, AND DR REPLIED WITH ORDER FOR KCL 40MEQ IV, NOTED AND CARRIED OUT.
--- NOTE | 2020-11-06 07:02 | NUR ---
RN CLOSING NOTES, PATIENT IN BED, BREATHING EVEN AND UNLABORED, NO SOB/ ACUTE DISTRESS NOTED WITH O2 SAT LEVEL 100% AT ROOM AIR, LEFT HAND AND FA IV LINE PATENT AND INTACT AND IVF INFUSING WELL AND PATIENT TOLERATED WELL, CONT CATHETER SHEAT IN RIGHT FEMORAL CONNECTED TO PRESSURE BAG NS FOR CONTINUOS FLUSHING AFTER PTT RESULTS FOR LAST NIGHT 33.3, FEMORAL PULSES PRESENT, NO ACTIVE BLEEDING OR ABNORMALITY NOTED THROUGHOUT THE SHIFT, POTASSIUM THIS MORNING 3.2 AWAITING FOR VERIFICATION FROM PHARMACY, WITH FREQUENT BI-TRIGEMINY THIS MORNING, INFORMED NICOLAS, ORDERS JUST FOR K+ REPLACEMENT, ALL SAFETY PRECAUTIONS IN PLACE, BED LOCKED AND LOWEST POSITION, CALL LIGHT WITHIN REACH, SIDE RAILS UP X2, WILL ENDORSE CONT OF CARE TO ONCOMING NURSE.
--- NOTE | 2020-11-06 07:30 | NUR ---
RN OPENING NOTES PATIENT PRESENT IN BED, AWAKE, A/OX4, ON ROOM AIR, TOLERATING WELL, SPO2 IS 100%, SR 70S TELE-MONITOR, DENIES PAIN, L FOOT DRESSINGS NOTED, R FEMORAL SHEATH PRESSURE BAG NOTED, INTACT, IV LINES ON L ARM AND HAND NOTED, PATENT AND INTACT, FLUSHES WELL, SAFETY MEASURES IN PLACE, CALL LIGHT REACH, BED IN LOWEST POSITION, WILL CONT TO MONITOR
[2020-11-06] MEDS: BLOOD SUGAR DIAGNOSTIC 1 EACH STRIP IN SCH ×4 (08:08→22:34)
[2020-11-06] MEDS: CLONIDINE HCL 0.1 MG TABLET PO PRN ×2 (08:12→20:48)
[2020-11-06] MEDS: POTASSIUM CHLORIDE 10 MEQ/50 ML PREMIXED IVPB FOR PERIPHERAL LINE IV SCH ×4 (08:12→11:04)
[2020-11-06] MEDS: CLOPIDOGREL BISULFATE 75 MG TABLET PO SCH (08:12)
[2020-11-06] MEDS: ASPIRIN 325 MG TABLET PO SCH (08:12)
--- NOTE | 2020-11-06 09:50 | NUR ---
DR VILLA ON BED SITE WITH PATIENT
[2020-11-06] MEDS ORDERED: hydrALAZINE HCL IV 20 MG VIAL IV ONE (10:00)
--- NOTE | 2020-11-06 10:00 | NUR ---
PATIENT NEED TO BE FLAT FOR 3H
--- NOTE | 2020-11-06 12:45 | NUR ---
REPORT GIVEN TO VIOLET FOR ARELY
--- NOTE | 2020-11-06 13:00 | NUR ---
LOCK STITCH CHANNELER-RECEIVED PT. FROM WARD CONTRERAS. PT.AWAKE. ALERT, ORIENTED X4. BREATHING COMES EASY.ON RA- SATS-97%. EKG SR W/ OCCASIONAL PACS NOTED. SBP 150. PERIPHERAL PULSES PALPABLE. AFEBRILE. LEFT FOOT INTACT W/ OCCLUSIVE DRESSING.W/ PALPABLE PT/DP. PER REPORT FORM WARD CONTRERAS DRESSING OF LEFT FOOT NOT DONE AT THIS TIME BECAUSE PT. GOING FOR MRI. WARM TO TOUCH, PALE LOOKING.
--- NOTE | 2020-11-06 13:30 | NUR ---
ICU/RN-PT. HAD BM, MODERATE,LOOSE TO SOFT, BROWN IN COLOR. CLEANSED AND KEPT WARM AND DRY. RIGHT FEMORAL ACCESS SITE IS DRY, NO BLEEDING OR HEMATOMA,INTACT W/ CLEAR DRESSING. HOB UP TO30 DEGREES AT THIS TIME.
--- NOTE | 2020-11-06 13:50 | NUR ---
ICU/RN- PT. FO RMRI OF LEFT FOOT W/ AND W/O CONTRAST. TO MRI PER PROTOCOL.
--- NOTE | 2020-11-06 14:20 | NUR ---
ICU/RN- REPORT GIVEN TO WARD JEFFERY.
--- NOTE | 2020-11-06 14:50 | NUR ---
ICU/RN- MRI W/O CONTRAST WAS DONE. NO IV CONTRAST DONE DUE TO PT. ELEVATED CREATININE PER JUAN CAST.
--- NOTE | 2020-11-06 15:00 | NUR ---
TESTING LEAD NOTES PATIENT RECEIVED FROM AMPARO SMALLS. ORIENTED PATIENT TO ROOM, UNIT AND CALL LIGHT. PATEINT REMAINS STABLE AT THIS TIME. ABLE TO VERBALIZE NEEDS.
--- NOTE | 2020-11-06 15:00 | NUR ---
ICU/RN- PT. TOLERATED PROCEDURE WELL.TRANSPORTED TO ROOM 322-2 PER ACLS PROTOCOL
[2020-11-06] MEDS: IV NS 0.9% 1,000 ML IV PRN (18:24)
--- NOTE | 2020-11-06 19:20 | NUR ---
PICK UP WORKER NOTES ALERT AND ORIENTED X4. REMAIN ON TELE MONITORING SR:79. HOB ELEVATED. DENIES ANY C/O PAIN NOR DISCOMFORT AT THIS TIME. LEFT HAND #22 INTACT AND PATENT INFUSING NS @ 75 ML/HR. LEFT FA # 20 SL INTACT AND PATENT. ON ROOM AIR WITH SPO2 97% BED IN LOWEST POSITION ,LOCKED. BED ALARM ON. CALL LIGHT WITHIN REACH.
[2020-11-06] MEDS: LEVOFLOXACIN 750 MG /D5W 150ML 750 MG in PREMIX 1 EA IV SCH (21:42)
[2020-11-06] MEDS: LINEZOLID RTU BAG 600 MG in PREMIX 1 EA IV SCH (22:19)
[2020-11-06] MEDS: INSULIN REGULAR, HUMAN 100 UNIT/ML 3 ML VIAL SQ PRN (22:29)
--- NOTE | 2020-11-06 23:33 | NUR ---
GAME PRODUCER OPENING NOTE Patient awake in bed, A/O x4, somewhat lethargic. Tele monitor reading sinus rhythm. Breathing even, clear, unlabored on room air. Skin warm, pink, dry. Cellulitis noted on left foot. 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 Redness noted on sacrum. IV site LFA 20g, L hand 22g saline locked, patent and intact. No signs of redness or infiltration. Patient is continent, uses urinal. Urine output clear and yellow. Bed in low position, wheels locked, side rails up x2, call light within reach.
[2020-11-07] VITALS: BP 177/84
[2020-11-07] MEDS: MORPHINE SULFATE INJ 2 MG/ML DISP.SYRIN IV PRN ×6 (00:28→23:05)
[2020-11-07] MEDS: CLONIDINE HCL 0.1 MG TABLET PO PRN ×3 (03:51→23:55)
[2020-11-07 04:00] VITALS: BP 179/92
--- NOTE | 2020-11-07 06:01 | NUR ---
JAVA DEVELOPMENT MANAGER CLOSING NOTE Patient awake in bed, A/O x4. Tele monitor reading sinus rhythm. Breathing even, clear, unlabored on room air. 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 Wound dressing clean and intact. Redness noted on sacrum. IV site LFA 20g, L hand 22g saline locked, patent and intact. No signs of redness or infiltration. Patient is continent, uses urinal. Urine output clear and yellow. Bed in low position, wheels locked, side rails up x2, call light within reach.
[2020-11-07] MEDS: INSULIN REGULAR, HUMAN 100 UNIT/ML 3 ML VIAL SQ PRN ×3 (06:15→23:04)
[2020-11-07] MEDS: BLOOD SUGAR DIAGNOSTIC 1 EACH STRIP IN SCH ×4 (06:36→22:50)
[2020-11-07 07:21] LABS: CALCIUM, SERUM 7.9 mg/dL (8.5-10.1); CARBON DIOXIDE 15 mmol/L (21-32); CHLORIDE 98 mmol/L (98-107); CREATININE 2.7 mg/dL (0.6-1.3); GLUCOSE 160 mg/dL (74-106); POTASSIUM 3.7 mmol/L (3.5-5.1); SODIUM SERUM 129 mmol/L (136-145); UREA NITROGEN, BLOOD 25 mg/dL (7-18)
--- NOTE | 2020-11-07 07:57 | NUR ---
MS/RN OPENING NOTE RECEIVED PATIENT FROM AUTO CARRIER DRIVER NURSE. PATIENT A/O X4. PATIENT ON ROOM AIR, TOLERATING WELL. BREATHING EVEN, NON LABORED, NO SOB NOTED. NO ACUTE DISTRESS NOTED. LFA #20, L HAND #22 INTACT AND PATENT. SAFETY MEASURES IN PLACE, BED LOCKED AND IN LOWEST POSITION, WILL CONTINUE TO MONITOR AND ENSURE SAFETY.
[2020-11-07 08:00] VITALS: BP 162/85
[2020-11-07] MEDS: CLOPIDOGREL BISULFATE 75 MG TABLET PO SCH (08:35)
[2020-11-07] MEDS: ASPIRIN 325 MG TABLET PO SCH (08:35)
[2020-11-07] MEDS: LINEZOLID RTU BAG 600 MG in PREMIX 1 EA IV SCH ×2 (08:37→20:49)
[2020-11-07 09:32] LABS: BASOPHILS % (AUTO) 0.3 % (0.0-2.0); EOSINOPHILS % (AUTO) 1.4 % (0.0-6.0); HEMATOCRIT 27 % (39-51); HEMOGLOBIN 8.8 g/dL (13.5-17.5); LYMPHOCYTES % (AUTO) 6.2 % (20.0-44.0); MEAN CORPUSCULAR HGB CONC 33 g/dl (31.0-36.0); MEAN CORPUSCULAR VOLUME 96 fL (80-96); MONOCYTES % (AUTO) 6.7 % (2.0-12.0); NEUTROPHILS # (AUTO) 13.3 /CMM (1.8-8.9); NEUTROPHILS % (AUTO) 85.4 % (43.0-81.0); PLATELET COUNT (AUTO) 425 /CMM (150-450); RED BLOOD CELL COUNT(AUTO) 2.81 MIL/uL (4.5-6.0); WHITE BLOOD COUNT (AUTO) 15.6 K/uL (4.3-11.0)
[2020-11-07] MEDS ORDERED: LIDOCAINE 1% INJ 50 ML MDV IJ ONE (10:30)
[2020-11-07 12:36] VITALS: BP 152/92
[2020-11-07 16:00] VITALS: BP 183/92
[2020-11-07] MEDS: IV NS 0.9% 1,000 ML IV PRN (17:23)
--- NOTE | 2020-11-07 19:38 | NUR ---
MS/RN CLOSING NOTE PATIENT REMAINS IN STABLE CONDITION. A/O X4 ABLE TO VERBALIZE NEEDS. PATIENT ON ROOM AIR, TOLERATING WELL. BREATHING EVEN, NON LABORED, NO SOB NOTED. LAC #20 AND LEFT HAND #22 HEP LOCK INTACT AND PATENT. PATIENT TO BE NPO AT MIDNIGHT PER MD FOR POSSIBLE SURGERY OF THE LEFT FOOT IN THE AM. SAFETY MEASURES IN PLACE. WILL ENDORSE TO BOARD SAW RUNNER.
--- NOTE | 2020-11-07 19:45 | NUR ---
LABEL PASTER NOTE: PATIENT RESTING IN BED, NO ACUTE DISTRESS NOTED. BREATHING EVEN AND UNLABORED, NO SOB NOTED. IV TO LFA AND LEFT HAND IN PLACE, INFUSING NS AT 75ML/HR. DRESSING TO LEFT FOOT IN PLACE, NO BLEEDING OR DRAINAGE NOTED. NO S/S OF SERG/HYPOGLYCEMIA NOTED. PATIENT TO HAVE SURGERY TOMORROW AND INSTRUCTED ON NOT TO EAT OR DRINK AFTER MIDNIGHT. BED LOCKED AND IN LOWEST POSITION, CALL LIGHT IN REACH. WILL CONTINUE TO MONITOR.
--- NOTE | 2020-11-07 19:55 | NUR ---
PRODUCTION OPERATOR NOTE: PATIENT RESTING IN BED, NO ACUTE DISTRESS NOTED. BREATHING EVEN AND UNLABORED, NO SOB NOTED. IV TO RFA IN PLACE. NO S/S OF HYPER/HYPOGLYCEMIA NOTED. BED LOCKED AND IN LOWEST POSITION, CALL LIGHT IN REACH, WILL CONTINUE TO MONITOR. Addendum: 11/08/20 at 0343 by JOSE CAREY RN ERROR WRONG PATIENT NOTE.
[2020-11-07 20:00] VITALS: BP 172/82
[2020-11-07] MEDS: HYDROCODONE/APAP 5/325MG TABLET PO PRN (20:49)
--- NOTE | 2020-11-07 23:00 | NUR ---
TICKET SELLER NOTE: PATIENT BLOOD SUGAR LEVEL 162MG/DL, PATIENT TO RECEIVE 3 UNITS OF INSULIN PER SLIDING SCALE. NO S/S OF HYPER/HYPOGLYCEMIA NOTED. SNACKS PROVIDED. WILL CONTINUE TO MONITOR.
[2020-11-08] VITALS (7 sets, daily range): BP systolic 147–187; BP diastolic 68–91
--- NOTE | 2020-11-08 00:30 | NUR ---
SECURITY MANAGEMENT SPECIALIST NOTE: PATIENT TO HAVE SURGERY AND INSTRUCTED NOT TO EAT OR DRINK. PATIENT STILL UNSURE IF WANTS TO GO THROUGH WITH SURGERY AND WILL CONTINUE TO THINK ABOUT IT. PATIENT WILLING TO BE NPO, JUST IN CASE PATIENT DECIDES TO HAVE SURGERY. WILL CONTINUE TO MONITOR.
[2020-11-08] MEDS: MORPHINE SULFATE INJ 2 MG/ML DISP.SYRIN IV PRN ×3 (04:32→22:23)
--- NOTE | 2020-11-08 05:00 | NUR ---
REFRIGERATION TECHNICIAN NOTE: PATIENT NOTED WITH ELEVATED BLOOD PRESSURE, CATAPRES AND PAIN MEDICATIONS GIVEN AND BLOOD PRESSURE STILL ELEVATED WITH SBP GREATER THAN 180. CONTACTED CRIM[employer]AL JUSTICE FACULTY MD, AND RECEIVED ORDER TO CHANGE CATAPRES TO 0.2MG ORAL EVERY 6 HOURS NEEDED. ORDER NOTED AND CARRIED OUT. WILL CONTINUE TO MONITOR.
--- NOTE | 2020-11-08 07:15 | NUR ---
TAPING FOREMAN NOTE: PATIENT RESTING IN BED, NO ACUTE DISTRESS NOTED. BREATHING EVEN AND UNLABORED, NO SOB NOTED. IV TO LFA AND LEFT HAND IN PLACE, INFUSING NS AT 75ML/HR. DRESSING TO LEFT FOOT IN PLACE, NO BLEEDING OR DRAINAGE NOTED. PATIENT BLOOD SUGAR LEVEL 131MG/DL, NO INSULIN GIVEN SINCE PATIENT FOR SURGERY TODAY. NO S/S OF SERG/HYPOGLYCEMIA NOTED. BED LOCKED AND IN LOWEST POSITION, CALL LIGHT IN REACH. WILL ENDORSE TO DAY NURSE TO CONTINUE WITH PLAN OF CARE.
[2020-11-08] MEDS: BLOOD SUGAR DIAGNOSTIC 1 EACH STRIP IN SCH ×4 (07:41→22:02)
--- NOTE | 2020-11-08 08:23 | NUR ---
MARKETING INSTRUCTOR OPENING NOTES BEDSIDE ENDORSEMENT DONE. PATIENT IS IN BED AWAKE AND VERBALLY RESPONSIVE. A/O X4, ABLE TO MAKE NEEDS KNOWN. BREATHING EVEN AND UNLABORED, TOLERATING ROOM AIR. ON TELE MONITORING, READING OF SR W/ PVC, HR AT 70'S, NO CARDIAC DISTRESS NOTED. FOR SCHEDULED SURGERY TODAY AT 1PM, BUT PATIENT HAS NOT SIGNED CONSENT FORM YET. PER PATIENT, HE IS "99% SURE BUT STILL NEED TO THINK ABOUT IT A LITTLE". OR NURSE CALLED AND INFORMED OF PATIENT'S CONCERN. CURRENTLY NPO AT THIS TIME. IV LINE ON LFA #20 AND LEFT HAND #22 INTACT AND PATENT. SAFETY PRECS IN PLACE: BED LOCKED AND ON LOWEST POSITION, SR UP X2, CALL LIGHT W/IN REACH. WILL CONTINUE TO MONITOR.
[2020-11-08 08:37] LABS: BASOPHILS % (AUTO) 0.3 % (0.0-2.0); EOSINOPHILS % (AUTO) 2.6 % (0.0-6.0); HEMATOCRIT 26 % (39-51); HEMOGLOBIN 8.6 g/dL (13.5-17.5); LYMPHOCYTES % (AUTO) 6.9 % (20.0-44.0); MEAN CORPUSCULAR HGB CONC 33 g/dl (31.0-36.0); MEAN CORPUSCULAR VOLUME 96 fL (80-96); MONOCYTES % (AUTO) 6.6 % (2.0-12.0); NEUTROPHILS # (AUTO) 12.2 /CMM (1.8-8.9); NEUTROPHILS % (AUTO) 83.6 % (43.0-81.0); PLATELET COUNT (AUTO) 435 /CMM (150-450); RED BLOOD CELL COUNT(AUTO) 2.76 MIL/uL (4.5-6.0); WHITE BLOOD COUNT (AUTO) 14.6 K/uL (4.3-11.0)
[2020-11-08] MEDS: ASPIRIN 325 MG TABLET PO SCH (08:37)
[2020-11-08] MEDS: CLOPIDOGREL BISULFATE 75 MG TABLET PO SCH (08:38)
[2020-11-08 08:46] LABS: ALANINE AMINOTRANSFERASE 10 U/L (12-78); ALBUMIN 1.9 g/dL (3.4-5.0); ALKALINE PHOSPHATASE 66 U/L (46-116); ASPARTATE AMINOTRANSFERASE 12 U/L (15-37); BILIRUBIN,TOTAL 0.2 mg/dL (0.2-1.0); CALCIUM, SERUM 8.4 mg/dL (8.5-10.1); CARBON DIOXIDE 20 mmol/L (21-32); CHLORIDE 101 mmol/L (98-107); CREATININE 1.7 mg/dL (0.6-1.3); GLUCOSE 130 mg/dL (74-106); POTASSIUM 3.4 mmol/L (3.5-5.1); SODIUM SERUM 135 mmol/L (136-145); TOTAL PROTEIN, SERUM 5.9 g/dL (6.4-8.2); UREA NITROGEN, BLOOD 17 mg/dL (7-18)
[2020-11-08] MEDS: HYDROCODONE/APAP 5/325MG TABLET PO PRN ×2 (08:50→20:27)
[2020-11-08] MEDS: IV NS 0.9% 1,000 ML IV PRN (09:18)
[2020-11-08] MEDS: LINEZOLID RTU BAG 600 MG in PREMIX 1 EA IV SCH ×2 (09:18→21:48)
[2020-11-08] MEDS: ENSURE ENLIVE CHOC 237 ML CAN PO SCH ×2 (10:30→17:13)
[2020-11-08] MEDS ORDERED: ANESTHESIA TRAY IN PYXIS 1 EA TRAY MC ONE (11:06)
[2020-11-08] MEDS ORDERED: BUPIVACAINE 0.5 % PF 150 MG/30 ML VIAL ONE (11:07)
[2020-11-08] MEDS: INSULIN REGULAR, HUMAN 100 UNIT/ML 3 ML VIAL SQ PRN ×3 (11:37→22:07)
[2020-11-08] MEDS ORDERED: FENTANYL PF 100MCG/2ML AMPUL ONE (12:58)
--- NOTE | 2020-11-08 13:00 | NUR ---
RN NOTES PATIENT PICKED UP FOR SURGERY TODAY VIA OWN BED; ACCOMPANIED BY 2 OR NURSES.
[2020-11-08] MEDS ORDERED: hydrALAZINE HCL IV 20 MG VIAL ONE (14:18)
--- NOTE | 2020-11-08 14:35 | NUR ---
RN SALLY MCGEE, OR NURSE, CALLED AND GAVE REPORT ABOUT PATIENT S/P SURGERY. SPOKE W/ DR. DEY AND WAS INFORMED ABOUT ORDERS; OK TO D/C NPO AND RESUME PREVIOUS DIET.
--- NOTE | 2020-11-08 14:40 | NUR ---
RN NOTES PATIENT RETURNED FROM SURGERY ACCOMPANIED BY 2 OR NURSES. ORDERS NOTED FROM DR. DEY. VS TAKEN AND RECORDED.
[2020-11-08] MEDS: CLONIDINE HCL 0.1 MG TABLET PO PRN (17:19)
--- NOTE | 2020-11-08 19:14 | NUR ---
MS RN CLOSING NOTES PATIENT IS IN BED AWAKE AND VERBALLY RESPONSIVE. A/O X4, ABLE TO MAKE NEEDS KNOWN. BREATHING EVEN AND UNLABORED, TOLERATING ROOM AIR. ON TELE MONITORING, READING OF SR W/ PVC, HR AT 70'S, NO CARDIAC DISTRESS NOTED. S/P SURGERY TODAY AT 1PM, ORDERS NOTED. ABLE TO EAT AND DRINK FLUIDS. IV LINE ON LFA #20 AND LEFT HAND #22 INTACT AND PATENT. SAFETY PRECS MAINTAINED: BED LOCKED AND ON LOWEST POSITION, SR UP X2, CALL LIGHT W/IN REACH. ENDORSED TO GOVERNMENT INSTRUCTOR RN FOR ARELY.
--- NOTE | 2020-11-08 19:55 | NUR ---
MS RN NOTES RECEIVED PATIENT IS IN BED AWAKE AND VERBALLY RESPONSIVE. ALERT ORIENTED X4, ABLE TO MAKE NEEDS KNOWN. NO SIGNS OF ACUTE RESPIRATORY DISTRESS NOTED.BREATHING EVEN AND UNLABORED, TOLERATING ROOM AIR. S/P SURGERY TODAY AT 1PM, REPORTED BY AM NURSE. ABLE TO EAT AND DRINK FLUIDS. IV LINE ON LFA #20 AND LEFT HAND #22 INTACT AND PATENT. SAFETY MEASURES IN PLACE. ASPIRATION PRECAUTION MAINTAINED, BED LOCKED AND ON LOWEST POSITION, SR UP X2, CALL LIGHT W/ IN EASY REACH. ALL NEEDS ANTICIPATED. WILL CONTINUE TO MONITOR ACCORDINGLY.
[2020-11-08] MEDS: LEVOFLOXACIN 750 MG /D5W 150ML 750 MG in PREMIX 1 EA IV SCH (20:13)
--- NOTE | 2020-11-08 22:23 | NUR ---
RN NOTES MORPHINE 2MG IV GIVEN FOR COMPLAINTS OF 9/10 LEG PAIN.
[2020-11-09] MEDS: MORPHINE SULFATE INJ 2 MG/ML DISP.SYRIN IV PRN ×4 (03:48→16:26)
--- NOTE | 2020-11-09 03:48 | NUR ---
RN NOTES MORPHINE 2 MG IV GIVEN FOR COMPLAINTS OF LEG/FOOT PAIN 08/10.
--- NOTE | 2020-11-09 06:24 | NUR ---
RN NOTES ALL NEEDS ATTENDED AND MET. ABLE TO REST AND SLEPT AT INTERVALS. KEPT CLEAN WARM DRY AND COMFORTABLE. REPOSITIONED FOR COMFORT. SAFETY MEASURES IN PLACE, ASPIRATION PRECAUTION EMPHASIZED. CALL LIGHT WITHIN EASY REACH. WILL ENDORSE TO AM NURSE FOR CONTINUITY OF CARE.
--- NOTE | 2020-11-09 07:30 | NUR ---
MS/RN Opening note Patient received from rn night. A/O X4, vital sings stable, stating that current pain scale is 10/10, will administer morphine as ordered. Dressing to left foot dry and intact, no new drainage seen through dressing. IVF infusing at 75ml/hr via left hand 22g, no signs of infiltration see. Safety measures in place, call light within reach. Will continue to monitor and ensure safety.
[2020-11-09 07:42] LABS: BASOPHILS % (AUTO) 0.3 % (0.0-2.0); EOSINOPHILS % (AUTO) 2.1 % (0.0-6.0); HEMATOCRIT 26 % (39-51); HEMOGLOBIN 8.5 g/dL (13.5-17.5); LYMPHOCYTES # (AUTO) 0.6 /CMM (0.8-4.8); LYMPHOCYTES % (AUTO) 4.7 % (20.0-44.0); MEAN CORPUSCULAR HGB CONC 33 g/dl (31.0-36.0); MEAN CORPUSCULAR VOLUME 94 fL (80-96); MONOCYTES # (AUTO) 1.1 /CMM (0.1-1.30); MONOCYTES % (AUTO) 8.5 % (2.0-12.0); NEUTROPHILS # (AUTO) 11.2 /CMM (1.8-8.9); NEUTROPHILS % (AUTO) 84.4 % (43.0-81.0); PLATELET COUNT (AUTO) 398 /CMM (150-450); RED BLOOD CELL COUNT(AUTO) 2.73 MIL/uL (4.5-6.0); WHITE BLOOD COUNT (AUTO) 13.3 K/uL (4.3-11.0)
[2020-11-09 08:00] VITALS: BP 159/79
--- NOTE | 2020-11-09 08:00 | NUR ---
MS DIRECTOR FINANCIAL PLANNING WASTED MORPHINE 1G MEDICATION WAS WASTED. ATTEMPTED TO DRAW UP MEDICATION AND VIAL POPPED. MEDICATION WASTED DISPENSED INTO THE AIR.
[2020-11-09] MEDS: ASPIRIN 325 MG TABLET PO SCH (08:12)
[2020-11-09] MEDS: CLOPIDOGREL BISULFATE 75 MG TABLET PO SCH (08:12)
[2020-11-09] MEDS: BLOOD SUGAR DIAGNOSTIC 1 EACH STRIP IN SCH ×4 (08:12→22:02)
[2020-11-09] MEDS: ENSURE ENLIVE CHOC 237 ML CAN PO SCH ×2 (08:13→17:00)
[2020-11-09] MEDS: LINEZOLID RTU BAG 600 MG in PREMIX 1 EA IV SCH (08:13)
[2020-11-09 08:32] LABS: CALCIUM, SERUM 8.2 mg/dL (8.5-10.1); CREATININE 1.3 mg/dL (0.6-1.3); POTASSIUM 4.2 mmol/L (3.5-5.1)
--- NOTE | 2020-11-09 09:13 | NUR ---
MS/television anchor Morning medications administered as ordered.
--- NOTE | 2020-11-09 11:18 | NUR ---
MS/RN S/B Dr Joshi Seen by DNP - patient for discharge planning to SNF. live study manager made aware and will work with family to find short term placement.
[2020-11-09] MEDS: HYDROCODONE/APAP 5/325MG TABLET PO PRN (15:13)
--- NOTE | 2020-11-09 15:33 | NUR ---
MS/RN S/B Dr Escobar Seen by Dr Escobar - dressing changed, patient to remain strictly non weight bearing on left lower extremity.
[2020-11-09 16:00] VITALS: BP 159/84
--- NOTE | 2020-11-09 18:29 | NUR ---
MS/RN End note Patient remains in stable condition, all needs attended. Last pain medication administered at 1625, for pain scal 10/10 to left foot. Will endore to police shift commander.
[2020-11-09 20:00] VITALS: BP 153/77
--- NOTE | 2020-11-09 20:20 | NUR ---
MS RN NOTE: PATIENT RESTING IN BED, NO ACUTE DISTRESS NOTED. BREATHING EVEN AND UNLABORED, NO SOB NOTED. IN SITE INTACT. BED LOCKED AND IN LOWEST POSITION, CALL LIGHT IN REACH. WILL CONTINUE TO MONITOR.
[2020-11-09] MEDS: LINEZOLID 600 MG TABLET PO SCH (20:56)
[2020-11-09] MEDS ORDERED: LEVOFLOXACIN (250MG) 250 MG TABLET PO SCH (21:00)
[2020-11-09] MEDS: LEVOFLOXACIN (250MG) 250 MG TABLET PO SCH (21:36)
[2020-11-10] MEDS: MAG HYDROX/AL HYDROX/SIMETH 30 ML UDC PO PRN ×2 (02:52→22:00)
[2020-11-10] MEDS: HYDROCODONE/APAP 5/325MG TABLET PO PRN ×4 (04:02→18:50)
--- NOTE | 2020-11-10 06:47 | NUR ---
MS RN CLOSING NOTES: PATIENT ASLEEP SOUNDLY IN THE ROOM, IV SITE INTACT.NO ACUTE DISTRESS NOTED, NO CHANGE OF CONDITION NOTED, NO COMPLAINS OF PAIN AT THIS TIME, WILL MONITOR PATIENTS PAIN STATUS. WILL ENDORSE PATIENT DAY SHIFT NURSE FOR CONTINUITY OF CARE.
--- NOTE | 2020-11-10 07:00 | NUR ---
RN NOTE PT IS ADMITTED WITH DIAGNOSIS OF LEFT FOOT CELLULITIS AND GANGRENE. DVT PRESENT IN THE LEFT LOWER EXTREMITY. MEDICAL HISTORY OF HTN, DM, PVD, AND CATARACTS. SURGICAL HISTORY OF CABG. NO KNOWN ALLERGIES. PT IS ON 96% O2 SAT ON ROOM AIR. NO SOB PRESENT. PT PULSE OF 89. PT USES URINAL TO URINATE. PT IS ON BED REST. LEFT FOOT REQUIRES DEBRIDEMENT. DIET IS CCHO. SSALINE LOCK PRESENT IN LEFT LOWER ARM. BED IN LOWEST POSITION. BED RAILS RAISED. CALL LIGHT WITHIN REACH. WILL CONTINUE TO MONITOR.
[2020-11-10 07:07] LABS: BASOPHILS % (AUTO) 0.3 % (0.0-2.0); EOSINOPHILS % (AUTO) 1.5 % (0.0-6.0); HEMATOCRIT 25 % (39-51); HEMOGLOBIN 8.4 g/dL (13.5-17.5); LYMPHOCYTES # (AUTO) 0.3 /CMM (0.8-4.8); MEAN CORPUSCULAR HGB CONC 33 g/dl (31.0-36.0); MEAN CORPUSCULAR VOLUME 94 fL (80-96); MONOCYTES # (AUTO) 1.3 /CMM (0.1-1.30); MONOCYTES % (AUTO) 11.4 % (2.0-12.0); NEUTROPHILS # (AUTO) 9.4 /CMM (1.8-8.9); NEUTROPHILS % (AUTO) 83.8 % (43.0-81.0); PLATELET COUNT (AUTO) 366 /CMM (150-450); RED BLOOD CELL COUNT(AUTO) 2.69 MIL/uL (4.5-6.0); WHITE BLOOD COUNT (AUTO) 11.3 K/uL (4.3-11.0)
[2020-11-10] MEDS: INSULIN REGULAR, HUMAN 100 UNIT/ML 3 ML VIAL SQ PRN ×5 (07:15→21:56)
[2020-11-10 07:21] LABS: CREATININE 1.3 mg/dL (0.6-1.3); POTASSIUM 3.5 mmol/L (3.5-5.1)
[2020-11-10] MEDS: BLOOD SUGAR DIAGNOSTIC 1 EACH STRIP IN SCH ×4 (07:35→22:00)
--- NOTE | 2020-11-10 07:40 | NUR ---
MS RN NOTES: PT. BLOOD SUGAR 143 MG /DL ,PT.REFUSED TO TAKE INSULLIN COVERAGE , ENCOURAGE , PER PT. STATES I DONT WANT TAKE IT MY BLOOD SUGAR DROP EASILY, ENDORSE TO AM NURSE FOR CONTINUITY FOR CARE.
[2020-11-10 08:00] VITALS: BP 141/73
[2020-11-10] MEDS: ASPIRIN 325 MG TABLET PO SCH (08:32)
[2020-11-10] MEDS: CLOPIDOGREL BISULFATE 75 MG TABLET PO SCH (08:32)
[2020-11-10] MEDS: MORPHINE SULFATE INJ 2 MG/ML DISP.SYRIN IV PRN ×3 (08:33→17:43)
[2020-11-10] MEDS: LINEZOLID 600 MG TABLET PO SCH ×2 (08:52→21:07)
[2020-11-10] MEDS: ENSURE ENLIVE CHOC 237 ML CAN PO SCH ×2 (08:53→17:13)
--- NOTE | 2020-11-10 12:27 | NUR ---
RN NOTE BG OF 137. INSULIN NOT ADMINISTERED DUE TO PT HAVING ALREADY ATE LUNCH.
--- NOTE | 2020-11-10 13:16 | NUR ---
RN MS NOTES PT IN BED, AWAKE, ALERT AND ORIENTED, PAIN MEDS GIVEN ORDERED FOR LEFT FOOT PAIN, SEEN AND EXAMINED BY DR. MURILLO, LEFT FOOT ASSESSED AND DRESSING CHANGE DONE BY MD, PLAN OF CARE DISCUSSED WITH PT AND PT'S SON OVER THE PHONE, VERBALIZED UNDERSTANDING.
[2020-11-10 16:00] VITALS: BP 156/81
--- NOTE | 2020-11-10 18:40 | NUR ---
RN NOTE PT IS A&OX4 AND RESPONDS WELL TO INSTRUCTIONS. PT IS CURRENTLY 100% OS SAT ON RA. PT IS ABLE TO USE THE URINAL PT HAD 1 BOWEL MOVEMENT TODAY. PT IS CURRENTLY ON BED REST. PT HAS A WOUND PRESENT IN THE LEFT FOOT. WOUND DEBRIDEMENT DONE. PT IS CURRENTLY ON BED REST. PT HAS A SALINE LOCK PRESENT IN THE LEFT LOWER ARM. PT IS AWAKE IN BED BED SET IN LOWEST POSITION. BED RAILS RAISED. CALL LIGHT WITHIN REACH. SAFETY MEASURES IMPLEMENTED.
--- NOTE | 2020-11-10 19:20 | NUR ---
RN NOTES: RECEIVED ASLEEP ON BED COMFORTABLY, A/OX3-4, CONTINENT USES URINAL, LEFT FOOT OWUND DRESSING INTACT S/P AMPUTATION, IV SITE ON LFA G#20 PATENT AND INTACT, ORIENTED TO UNIT AND STAFF, FALL, SAFETY AND ASPIRATION PRECAUTION OBSERVED, BED LOW AND LOCKED, CALL LIGHT WITHIN EASY REACH. HE WENT BACK TO SLEEP.
[2020-11-10 20:00] VITALS: BP 153/80
[2020-11-10] MEDS: LEVOFLOXACIN (250MG) 250 MG TABLET PO SCH (21:06)
--- NOTE | 2020-11-10 21:57 | NUR ---
RN NOTES ENDORSED TO JAZ/RN FOR CONTINUITY OF CARE. DUR FOR PAIN MEDICATION AT 2200
[2020-11-10 22:52] VITALS: BP 138/80
[2020-11-10] MEDS: IV NS 0.9% 1,000 ML IV PRN (23:32)
[2020-11-11] MEDS: HYDROCODONE/APAP 5/325MG TABLET PO PRN ×4 (03:30→20:29)
--- NOTE | 2020-11-11 06:46 | NUR ---
MS RN CLOSING NOTES: PATIENT ASLEEP SOUNDLY IN THE ROOM, IV SITE INTACT.NO ACUTE DISTRESS NOTED, NO CHANGE OF CONDITION NOTED, NO COMPLAINS OF PAIN AT THIS TIME, WILL MONITOR PATIENTS PAIN STATUS. ALL NEEDS ATTENDED ANTICIPATED, WILL ENDORSE PATIENT DAY SHIFT NURSE FOR CONTINUITY OF CARE.
[2020-11-11] MEDS: INSULIN REGULAR, HUMAN 100 UNIT/ML 3 ML VIAL SQ PRN ×4 (07:24→23:08)
[2020-11-11] MEDS: BLOOD SUGAR DIAGNOSTIC 1 EACH STRIP IN SCH ×4 (07:24→21:26)
--- NOTE | 2020-11-11 07:50 | NUR ---
RN OPENING NOTE Patient is resting in bed, A/O x4, showing no signs of acute distress or SOB, stable on RA. Patient denies any pain or discomfort at this time. IV line is clean and intact flushing well. Bed is in lowest position, side rails x2 in upright position, call light is within reach, fall safety and aspiration enforced. Will continue with plan of care.
[2020-11-11 08:00] VITALS: BP 156/79
[2020-11-11] MEDS: LINEZOLID 600 MG TABLET PO SCH ×2 (08:38→20:44)
[2020-11-11] MEDS: ENSURE ENLIVE CHOC 237 ML CAN PO SCH ×2 (08:38→17:37)
[2020-11-11] MEDS: CLOPIDOGREL BISULFATE 75 MG TABLET PO SCH (08:38)
[2020-11-11] MEDS: ASPIRIN 325 MG TABLET PO SCH (08:38)
[2020-11-11 08:56] LABS: CALCIUM, SERUM 7.7 mg/dL (8.5-10.1); CREATININE 1.3 mg/dL (0.6-1.3); POTASSIUM 3.4 mmol/L (3.5-5.1)
[2020-11-11] MEDS ORDERED: POTASSIUM CHLORIDE 20 MEQ TAB.PRT.SR PO ONE (13:30)
[2020-11-11 16:00] VITALS: BP 150/89
--- NOTE | 2020-11-11 19:16 | NUR ---
RN CLOSING NOTE Patient is resting in bed, A/O x4, showing no signs of acute distress or SOB, stable on RA. Patient denies any pain or discomfort at this time. IV line is clean and intact flushing well. All patient needs met, all due medications given, patient kept clean and dry throughout shift. Bed is in lowest position, side rails x2 in upright position, call light is within reach, fall safety and aspiration enforced. Will endorse to fast food shift supervisor for ARELY.
--- NOTE | 2020-11-11 20:00 | NUR ---
RN MS OPENING NOTE Patient is resting in bed, A/O x4, showing no signs of acute distress or SOB, stable on RA. Patient denies any pain or discomfort at this time. IV line on LFA #20g patent and intact. Bed is in lowest position, side rails x2 in upright position. Call light is within reach. Fall safety and aspiration enforced. Will continue with plan of care.
--- NOTE | 2020-11-11 20:30 | NUR ---
GPS-RN NOTE: LEFT FOOT PAIN PATIENT C/O LEFT FOOT PAIN ON A PAIN SCALE OF 7/10. ADMINISTERED NORCO 5/325MG PO ORDERED. WILL CONTINUE TO REASSESS FOR THE EFFECTIVENESS.
[2020-11-11] MEDS: LEVOFLOXACIN (250MG) 250 MG TABLET PO SCH (20:44)
[2020-11-11 22:45] VITALS: BP 138/92
[2020-11-12] MEDS: HYDROCODONE/APAP 5/325MG TABLET PO PRN ×2 (01:39→05:46)
--- NOTE | 2020-11-12 06:38 | NUR ---
RN MS CLOSING NOTE Patient in bed asleep, arouses easily. A/O x4, showing no signs of acute distress or SOB, stable on RA. Patient denies any pain or discomfort at this time. IV line on LFA #20g patent and intact. Bed is in lowest position, side rails x2 in upright position. Call light is within reach. Fall safety and aspiration enforced. Will endorse to the day shift nurse for continuity of care.
[2020-11-12] MEDS: BLOOD SUGAR DIAGNOSTIC 1 EACH STRIP IN SCH ×2 (06:45→12:29)
[2020-11-12 06:47] LABS: BASOPHILS % (AUTO) 0.5 % (0.0-2.0); EOSINOPHILS % (AUTO) 2.1 % (0.0-6.0); HEMATOCRIT 26 % (39-51); HEMOGLOBIN 8.5 g/dL (13.5-17.5); LYMPHOCYTES # (AUTO) 0.9 /CMM (0.8-4.8); LYMPHOCYTES % (AUTO) 9.9 % (20.0-44.0); MEAN CORPUSCULAR HGB CONC 33 g/dl (31.0-36.0); MEAN CORPUSCULAR VOLUME 93 fL (80-96); MONOCYTES # (AUTO) 0.8 /CMM (0.1-1.30); NEUTROPHILS # (AUTO) 7.6 /CMM (1.8-8.9); NEUTROPHILS % (AUTO) 79.5 % (43.0-81.0); PLATELET COUNT (AUTO) 356 /CMM (150-450); RED BLOOD CELL COUNT(AUTO) 2.74 MIL/uL (4.5-6.0); WHITE BLOOD COUNT (AUTO) 9.5 K/uL (4.3-11.0)
[2020-11-12 07:44] LABS: CALCIUM, SERUM 7.7 mg/dL (8.5-10.1); CREATININE 1.1 mg/dL (0.6-1.3); MAGNESIUM 1.9 mg/dL (1.8-2.4); PHOSPHORUS 2.3 mg/dL (2.5-4.9); POTASSIUM 3.9 mmol/L (3.5-5.1)
--- NOTE | 2020-11-12 07:47 | NUR ---
MS RN NOTE PATIENT IN BED RESTING COMFORTABLY. PATIENT IN NO ACUTE DISTRESS. NO SOB NOTED. PATIENT BREATHING IS EVEN AND UNLABORED. PATIENT BED ALARM IS ON. PATIENT SAFETY PRECAUTIONS IN PLACE. PATIENT BED IS LOCKED AND IN LOWEST POSITION. CALL LIGHT WITHIN REACH. WILL CONTINUE TO MONITOR.
[2020-11-12] MEDS: ASPIRIN 325 MG TABLET PO SCH (08:42)
[2020-11-12] MEDS: CLOPIDOGREL BISULFATE 75 MG TABLET PO SCH (08:44)
[2020-11-12] MEDS: LINEZOLID 600 MG TABLET PO SCH (08:44)
[2020-11-12] MEDS: MAG HYDROX/AL HYDROX/SIMETH 30 ML UDC PO PRN (08:45)
[2020-11-12] MEDS: MORPHINE SULFATE INJ 2 MG/ML DISP.SYRIN IV PRN (08:46)
[2020-11-12] MEDS: ENSURE ENLIVE CHOC 237 ML CAN PO SCH (08:49)
[2020-11-12] MEDS: CLONIDINE HCL 0.1 MG TABLET PO PRN (11:55)
--- NOTE | 2020-11-12 12:31 | NUR ---
MS RN NOTE PATIENT BLOOD SUGAR IS 108. NO INSULIN COVERAGE NEEDED PER PROTOCOL.
[2020-11-12 13:00] VITALS: BP 156/86
--- NOTE | 2020-11-12 13:40 | NUR ---
MS RESOURCE DEVELOPMENT MANAGER NOTE PATIENT IS IN NO ACUTE DISTRESS. PATIENTS BREATHING IS EVEN AND UNLABORED. NO SOB NOTED. PATIENT IS MEDICALLY STABLE FOR DISCHARGE. DC INSTRUCTION PROVIDED. PATIENT VERBALIZED UNDERSTANDING. SKIN ASSESSED, NO SKIN BREAK DOWN NOTED. WOUND CARE PROVIDED ORDERED. PATIENT HAS BELONGING WITH HIM, BELONGINGS LIST SIGNED. PATIENT KEPT CLEAN AND DRY THROUGHOUT MY SHIFT . PATIENTS NEEDS ADDRESSED. PATIENTS IV LINE AND ID BAND REMOVED. REPORT WAS GIVEN TO FELY VARGHESE AT [facility]. REPORT WAS GIVEN TO EMT. PATIENT LEFT VIA GURNEY AND BY AMBULANCE TO [facility]. AWARE OF DISCHARGE. Addendum: 11/12/20 at 1436 by SAWYER FRANK RN MS RESOURCE DEVELOPMENT MANAGER NOTE PATIENT IS IN NO ACUTE DISTRESS. PATIENTS BREATHING IS EVEN AND UNLABORED. NO SOB NOTED. PATIENT IS MEDICALLY STABLE FOR DISCHARGE. DC INSTRUCTION PROVIDED. PATIENT VERBALIZED UNDERSTANDING. SKIN ASSESSED, NO NEW SKIN BREAK DOWN NOTED. WOUND CARE PROVIDED ORDERED. PATIENT HAS BELONGING WITH HIM, BELONGINGS LIST SIGNED. PATIENT KEPT CLEAN AND DRY THROUGHOUT MY SHIFT . PATIENTS NEEDS ADDRESSED. PATIENTS IV LINE AND ID BAND REMOVED. REPORT WAS GIVEN TO FELY VARGHESE AT [facility]. REPORT WAS GIVEN TO EMT. PATIENT LEFT VIA GURNEY AND BY AMBULANCE TO [facility]. AWARE OF DISCHARGE.
== END 2020-11-12 13:50 | DRG 853 ==
LOC: ER 10:03 → MED 20:42 → ICU 11-03 18:59 → TELE 11-06 15:36 → MED 11-08 14:07
PROVIDERS: ADMIT Nurse Practitioner Acute Care; ATTEND Nurse Practitioner Acute Care
PROC: 047L3DZ Dilation of Left Femoral Artery with Intraluminal Device, Percutaneous Approach (ICD-10-PCS; principal; 2020-11-03)
PROC: 04CL3ZZ Extirpation of Matter from Left Femoral Artery, Percutaneous Approach (ICD-10-PCS; 2020-11-03)
PROC: 4A023N7 Measurement of Cardiac Sampling and Pressure, Left Heart, Percutaneous Approach (ICD-10-PCS; 2020-11-03)
PROC: B211YZZ Fluoroscopy of Multiple Coronary Arteries using Other Contrast (ICD-10-PCS; 2020-11-03)
PROC: 0QBR0ZZ Excision of Left Toe Phalanx, Open Approach (ICD-10-PCS; 2020-11-03)
PROC: B213YZZ Fluoroscopy of Multiple Coronary Artery Bypass Grafts using Other Contrast (ICD-10-PCS; 2020-11-03)
PROC: B310YZZ Fluoroscopy of Thoracic Aorta using Other Contrast (ICD-10-PCS; 2020-11-03)
PROC: 0J9R0ZZ Drainage of Left Foot Subcutaneous Tissue and Fascia, Open Approach (ICD-10-PCS; 2020-11-07)
PROC: 0Y6N0ZD Detachment at Left Foot, Partial 4th Ray, Open Approach (ICD-10-PCS; 2020-11-08)
PROC: 0Y6N0ZF Detachment at Left Foot, Partial 5th Ray, Open Approach (ICD-10-PCS; 2020-11-08)
DX: A41.9 Sepsis, unspecified organism (principal); A48.0 Gas gangrene; N17.0 Acute kidney failure with tubular necrosis; E43 Unspecified severe protein-calorie malnutrition; E11.52 Type 2 diabetes mellitus with diabetic peripheral angiopathy with gangrene; L03.116 Cellulitis of left lower limb; E22.2 Syndrome of inappropriate secretion of antidiuretic hormone; I82.492 Acute embolism and thrombosis of other specified deep vein of left lower extremity; I70.92 Chronic total occlusion of artery of the extremities; M86.18 Other acute osteomyelitis, other site; I10 Essential (primary) hypertension; Z87.891 Personal history of nicotine dependence; E11.69 Type 2 diabetes mellitus with other specified complication; E11.40 Type 2 diabetes mellitus with diabetic neuropathy, unspecified; E11.621 Type 2 diabetes mellitus with foot ulcer; I25.10 Atherosclerotic heart disease of native coronary artery without angina pectoris; Z95.1 Presence of aortocoronary bypass graft; E87.6 Hypokalemia; M62.562 Muscle wasting and atrophy, not elsewhere classified, left lower leg; M62.561 Muscle wasting and atrophy, not elsewhere classified, right lower leg; L97.529 Non-pressure chronic ulcer of other part of left foot with unspecified severity; Z86.718 Personal history of other venous thrombosis and embolism; M77.30 Calcaneal spur, unspecified foot; I99.8 Other disorder of circulatory system; B96.89 Other specified bacterial agents as the cause of diseases classified elsewhere; T50.8X5A Adverse effect of diagnostic agents, initial encounter; N14.1 Nephropathy induced by other drugs, medicaments and biological substances; Y92.9 Unspecified place or not applicable
CPT/HCPCS: 36415; 37229; 71045-TC; 73630-TC; 73718-TC; 75630-TC; 80048-TC; 80053-TC; 80061-TC; 80202-TC; 82728-TC; 82962-TC; 83540-TC; 83605-TC; 83735-TC; 83935-TC; 84100-TC; 84300-TC; 84443-TC; 84550-TC; 85025-TC; 85610-TC; 85652-TC; 85730-TC; 86140-TC; 86850-TC; 87040-TC; 87070-TC; 87081-TC; 87186-TC; 88305-TC; 88311-TC; 93307-TC; 93970-TC; A4216; A4217; A6209; A6253; A6403; A6407; C1725; C1887; C1894; C9803; G0378; G0500; J0360; J1200; J1644; J1815; J1956; J2020; J2250; J2270; J2405; J2543; J2704; J3010; J3370; J3480; J3490; J7030; J7060; Q9967

== ENCOUNTER 2020-11-13 22:49 | Inpatient (IN) | payer MEDICARE, OTHER ==
[~2020-11-13] VITALS: Ht 182.9 cm; Wt 89.8 kg
[~2020-11-13 22:49] MED LIST: ACET-868 PO
--- NOTE | 2020-11-13 23:16 | NUR ---
LINE ESTABLISHED RAC 20G, BLOOD COLLECTED, SENT TO LAB.
--- NOTE | 2020-11-13 23:21 | NUR ---
TEDID SWABBED, SENT TO LAB.
--- NOTE | 2020-11-13 23:29 | NUR ---
PT AAOX4. BIBPA FROM [facility] C/O SOB WITH CONGESTION X1 DAY. PT PLACED IN BED 5 ON MONITOR AND PULSE OX. PT SAT 91%-93% ON ROOM AIR, WAS PLACED ON 2L NC, SAT 98%. AWAITING FOR MD FOR EVAL AND ORDERS. WILL CONTINUE TO MONITOR.
--- NOTE | 2020-11-13 23:42 | NUR ---
RADIOLOGY AT BEDSIDE FOR XRAY.
[2020-11-14 00:12] LABS: BASOPHILS # (AUTO) 0.1 /CMM (0.0-0.2); BASOPHILS % (AUTO) 0.5 % (0.0-2.0); HEMATOCRIT 32 % (39-51); HEMOGLOBIN 10.4 g/dL (13.5-17.5); LYMPHOCYTES # (AUTO) 0.3 /CMM (0.8-4.8); LYMPHOCYTES % (AUTO) 2.1 % (20.0-44.0); MEAN CORPUSCULAR HGB CONC 33 g/dl (31.0-36.0); MEAN CORPUSCULAR VOLUME 96 fL (80-96); MONOCYTES # (AUTO) 0.2 /CMM (0.1-1.30); MONOCYTES % (AUTO) 1.6 % (2.0-12.0); NEUTROPHILS # (AUTO) 13.7 /CMM (1.8-8.9); NEUTROPHILS % (AUTO) 95.8 % (43.0-81.0); PLATELET COUNT (AUTO) 355 /CMM (150-450); RED BLOOD CELL COUNT(AUTO) 3.29 MIL/uL (4.5-6.0); WHITE BLOOD COUNT (AUTO) 14.3 K/uL (4.3-11.0)
[2020-11-14 00:18] LABS: CALCIUM, SERUM 8.6 mg/dL (8.5-10.1); CREATININE 1.3 mg/dL (0.6-1.3); POTASSIUM 4.7 mmol/L (3.5-5.1)
[2020-11-14 00:31] LABS: ALBUMIN 2.2 g/dL (3.4-5.0); BILIRUBIN,TOTAL 0.3 mg/dL (0.2-1.0); TOTAL PROTEIN, SERUM 6.8 g/dL (6.4-8.2)
--- NOTE | 2020-11-14 00:48 | NUR ---
PT REMAINS IN BED, RESTING COMFORTABLY. VSS.
--- NOTE | 2020-11-14 01:09 | NUR ---
RECEIVED CALL FROM LAB RE COVID RESULTS. PT IS COVID POSITIVE.
[2020-11-14] MEDS ORDERED: MORPHINE SULFATE INJ 2 MG/ML DISP.SYRIN IV PRN (01:30)
[2020-11-14] MEDS ORDERED: ENOXAPARIN SODIUM 40 MG/0.4 ML DISP.SYRIN SQ SCH (01:30)
[2020-11-14] MEDS ORDERED: NITROGLYCERIN 0.4 MG/TAB BOTTLE SL PRN (01:30)
[2020-11-14] MEDS ORDERED: GUAIFENESIN LA 600 MG TABLET.SA PO ONE ×2 (01:30→03:06)
[2020-11-14] MEDS ORDERED: MAG HYDROX/AL HYDROX/SIMETH 30 ML UDC PO PRN (01:30)
[2020-11-14] MEDS ORDERED: DOCUSATE SODIUM 100 MG CAPSULE PO PRN (01:30)
[2020-11-14] MEDS ORDERED: ACETAMINOPHEN 325 MG TABLET PO PRN (01:30)
[2020-11-14] MEDS ORDERED: CEFTRIAXONE 1 G in IV D5W 50 ML IV SCH (01:30)
[2020-11-14] MEDS ORDERED: ONDANSETRON HCL/PF 4 MG/2 ML VIAL IVP PRN (01:30)
[2020-11-14 02:13] LABS: C-REACTIVE PROTEIN 15.4 mg/dL (0.0-0.9)
--- NOTE | 2020-11-14 02:23 | NUR ---
CALLED AFTER HOUR PHARMACY TO VERIFY THE ADMITTING ORDERS
--- NOTE | 2020-11-14 02:31 | NUR ---
NOTED PT SOB 02 SAT 92% ON 2L/NC, O2 INCREASED TO 4L/NC, PALE, COOL AND DIAPHORETIC, BP 211/97, HR-111. WILL CALL BRODERICK MENDOZA [facility] REGARDING PT CONDITION.
[2020-11-14] MEDS ORDERED: FUROSEMIDE 40 MG/4 ML VIAL ONE (02:38)
--- NOTE | 2020-11-14 02:39 | NUR ---
SPOKE TO BRODERICK MENDOZA [facility]- REGARDING PT BP 211/97, HR-111 AND PT C/O SOB 02 SAT 92% ON 2L/NC, O2 INCREASED TO 4L/NC, PALE. COOL AND DIAPHORETIC. ORDERED LASIX 40MG IVP X1 NOW AND CALL FOR FURTHER ORDERS IF PT CONDITION DOES NOT IMPROVE.
[2020-11-14] MEDS ORDERED: NITROGLYCERIN 0.4 MG/TAB BOTTLE ONE (02:48)
[2020-11-14] MEDS ORDERED: NITROGLYCERIN PACKET 1 GM PACKET ONE (02:51)
[2020-11-14] MEDS ORDERED: NITROGLYCERIN PACKET 1 GM PACKET TOP SCH (03:00)
[2020-11-14] MEDS ORDERED: FUROSEMIDE 20 MG/2 ML VIAL IV SCH (03:00)
--- NOTE | 2020-11-14 03:00 | NUR ---
RECEIVED ORDER FROM DR. GALICIA TO GIVE NITRO PASTE 1GM TO CHEST WALL X1 NOW. ORDER CARRIED OUT BY PRIMARY NURSE WARD AUSTIN.
[2020-11-14] MEDS ORDERED: ENOXAPARIN SODIUM 40 MG/0.4 ML DISP.SYRIN SQ ONE (03:06)
[2020-11-14] MEDS ORDERED: CEFTRIAXONE 1GM BAG (ER ONLY) 50 ML IV ONE (03:06)
[2020-11-14] MEDS ORDERED: hydrALAZINE HCL IV 20 MG VIAL IV PRN (03:30)
[2020-11-14] MEDS ORDERED: AZITHROMYCIN 250 MG TABLET ONE (03:30)
[2020-11-14] MEDS: AZITHROMYCIN 250 MG TABLET PO SCH ×2 (03:33→21:59)
--- NOTE | 2020-11-14 03:43 | NUR ---
PT PROVIDED WITH MORE BLANKETS. MINIMAL URINE OUTPUT (30MLS)
[2020-11-14] MEDS ORDERED: ENOXAPARIN SODIUM 80 MG/0.8 ML DISP.SYRIN SQ SCH (04:00)
--- NOTE | 2020-11-14 04:07 | NUR ---
SPOKE TO THE PT REGARDING PLAN OF CARE. PT STATED "I FEEL BETTER, WHATEVER MEDICATION YOU GAVE ME HELPED." PT IN BED RESTING, AWARE OF PLAN OF CARE. VSS.
--- NOTE | 2020-11-14 06:56 | NUR ---
I SPOKE TO THE PT'S SON, UPDATED PLAN OF CARE. VSS. PT AND SON AWARE OF PLAN OF CARE. PT RESTING COMFORTABLY. VSS. AAOX4.
--- NOTE | 2020-11-14 07:25 | NUR ---
REPORT GIVEN TO AM NURSE COLT HOPPER FOR ARELY
--- NOTE | 2020-11-14 07:42 | NUR ---
called pharmacy for am meds
[2020-11-14] MEDS: ASPIRIN 81 MG TAB.CHEW PO SCH (08:19)
[2020-11-14] MEDS: FUROSEMIDE 40 MG/4 ML VIAL IV SCH ×2 (08:19→19:58)
--- NOTE | 2020-11-14 09:00 | NUR ---
all am meds administered. breakfast provided to pt, however he states that he doesnt have any appetite
--- NOTE | 2020-11-14 09:40 | NUR ---
LAB CALLED TRIPONIN 2.182
--- NOTE | 2020-11-14 09:43 | NUR ---
HOSPITALIST PAGED TO CONVEY INFO.
[2020-11-14] MEDS: CLOPIDOGREL BISULFATE 75 MG TABLET PO SCH (10:26)
[2020-11-14] MEDS ORDERED: IOHEXOL-350 100 ML VIAL IV ONE (12:32)
[2020-11-14] MEDS ORDERED: CT SWABBABLE VALVE TRANS SET 1 EA INFUS.SET MC ONE (12:32)
[2020-11-14] MEDS ORDERED: IV NS 0.9% 250 ML IV ONE (12:32)
[2020-11-14] MEDS ORDERED: FUROSEMIDE 40 MG/4 ML VIAL IV SCH (13:30)
[2020-11-14] MEDS: DEXAMETHASONE SOD PHOSPHATE 10 MG/ML VIAL IV SCH (14:00)
[2020-11-14] MEDS ORDERED: ONDANSETRON HCL/PF 4 MG/2 ML VIAL ONE (15:13)
[2020-11-14] MEDS ORDERED: CLON0.2T PO (16:44)
[2020-11-14] MEDS ORDERED: MULT-447 PO (16:44)
[2020-11-14] MEDS ORDERED: LINE600T12 PO (16:44)
[2020-11-14] MEDS ORDERED: MAGN400O6 PO (16:44)
[2020-11-14] MEDS ORDERED: NUTR1PAC14 PO (16:44)
[2020-11-14] MEDS ORDERED: LEVO750T46 PO (16:44)
[2020-11-14] MEDS ORDERED: HYDR-4384 PO (16:44)
[2020-11-14] MEDS ORDERED: CLOP75TA15 PO (16:44)
[2020-11-14] MEDS ORDERED: ZINC220C6 PO (16:44)
[2020-11-14] MEDS ORDERED: TEMA15CA PO (16:44)
[2020-11-14] MEDS ORDERED: GLUC1KIT IM (16:44)
[2020-11-14] MEDS ORDERED: DEXT50DI8 IV (16:44)
[2020-11-14] MEDS ORDERED: ASCO-352 PO (16:44)
[2020-11-14] MEDS ORDERED: ASPI-992 PO (16:44)
[2020-11-14] MEDS ORDERED: MAG30ORA PO (16:44)
[2020-11-14] MEDS ORDERED: AMIN30LI2 PO (16:44)
[2020-11-14] MEDS ORDERED: INSU100V3 SQ (16:44)
--- NOTE | 2020-11-14 16:55 | NUR ---
[facility] BED 116-2 RN IS CEM
--- NOTE | 2020-11-14 17:26 | NUR ---
hydralazine prn administered. pt bp is 193/98, pulse 91.
--- NOTE | 2020-11-14 17:33 | NUR ---
report given to lorelei rn at [facility].
--- NOTE | 2020-11-14 17:45 | NUR ---
transferred to [facility]
--- NOTE | 2020-11-14 17:50 | NUR ---
RN NOTES RECEIVED PT FROM ER REPORT GIVEN BY GAL. BP IS 188/103 GAL GAVE HYDRALAZINE
--- NOTE | 2020-11-14 19:24 | NUR ---
RN CLOSING PATIENT IS RESTING IN BED . PT IS ON 4L SAT WELL. ALERT AND ORIENTED X4. INCONTINENT. HAS RASH IN THE BACK AND LEFT LEG FOOT ULCER AND AMPUTE 2 TOES. TOOK PIX IN THE CHART. R AC # 20 IS FLUSHING WELL, INTACT AND NO INFILTRATION OR INFECTION NOTED. NO SOB AT THIS MOMENT. SAFETY MEASUREMENTS ARE IMPLEMENTED PER HOSPITAL POLICY. BED IS IN THE LOWEST POSITION. SIDE RAILS ARE UP. CALL LIGHT WITHIN THE REACH. WILL ENDORSE TO PM NURSE FOR ARELY
--- NOTE | 2020-11-14 19:59 | NUR ---
RN NOTES PT BROUGHT TO BERT AT 1750 SCANNED THERON LATE
[2020-11-14 20:00] VITALS: BP 152/83
[2020-11-14] MEDS: ENOXAPARIN SODIUM 100 MG/ML DISP.SYRIN SQ SCH (21:51)
[2020-11-14] MEDS: MEROPENEM 1 G in IV NS 0.9% 100 ML IV SCH (22:21)
--- NOTE | 2020-11-14 22:37 | NUR ---
TELE-1/FRAME ASSEMBLER ACCORDING TO LAB IND CONSENT FOR CONVALESCENT PLASMA CAN ONLY BE SIGNED BY DR. SOMMER, DR. VALENZUELA OR DR. HAYS. ORDER IS NOT VALID UNLESS SIGNED BY ONE OF THOSE MDS. WILL HAVE DAYSHIFT FOLLOW UP WITH APPROVED MDS.
[2020-11-14] MEDS: VANCOMYCIN 1.25 GM in IV D5W 250 ML IV SCH (23:05)
[2020-11-15] VITALS (7 sets, daily range): BP systolic 156–171; BP diastolic 73–92
[2020-11-15] MEDS: MEROPENEM 1 G in IV NS 0.9% 100 ML IV SCH ×2 (05:14→13:38)
--- NOTE | 2020-11-15 05:33 | NUR ---
TELE-1/GARBAGE PICK UP WORKER GENERAL HELPER UNABLE TO DRAW MORNING LABS AT THIS TIME. SHE WILL SEND ANOTHER TECH TO ATTEMPT BLOOD DRAW.
--- NOTE | 2020-11-15 07:15 | NUR ---
RN OPENING NOTES PATIENT IS RESTING IN BED . PT IS ON 4L SAT WELL. ALERT AND ORIENTED X4. INCONTINENT. HAS RASH IN THE BACK AND LEFT LEG FOOT ULCER AND AMPUTE 2 TOES. TOOK PIX IN THE CHART. R AC # 20 IS FLUSHING WELL, INTACT AND NO INFILTRATION OR INFECTION NOTED. NO SOB AT THIS MOMENT. SAFETY MEASUREMENTS ARE IMPLEMENTED PER HOSPITAL POLICY. BED IS IN THE LOWEST POSITION. SIDE RAILS ARE UP. CALL LIGHT WITHIN THE REACH. WILL CONTINUE
--- NOTE | 2020-11-15 07:18 | NUR ---
TELE-1/WEEDER ENDORSED TO CEM RN TO FOLLOW UP WITH CONVALESCENT PLASMA.
--- NOTE | 2020-11-15 09:03 | NUR ---
WOUND CARE CONSULT: REVIEWED CHART, NURSING DOCUMENTATION AND PHOTOS WHICH INDICATE FOOT WOUNDS AND SACRAL SCAR, PRESENT ON ADMISSION. RECOMMEND DPM CONSULT. DR DEY NOTIFIED OF CONSULT REQUEST. RECOMMENDATIONS MADE FOR SKIN PROTECTION. DISCUSSED WITH NURSING STAFF. IN AGREEMENT WITH PLAN OF CARE.
[2020-11-15] MEDS ORDERED: Z GUARD REMEDY 2 OZ OINT TP PRN (09:30)
[2020-11-15] MEDS: CLOPIDOGREL BISULFATE 75 MG TABLET PO SCH (09:44)
[2020-11-15] MEDS: ASPIRIN 81 MG TAB.CHEW PO SCH (09:44)
[2020-11-15] MEDS: FUROSEMIDE 40 MG/4 ML VIAL IV SCH ×2 (09:44→16:31)
[2020-11-15] MEDS: DEXAMETHASONE SOD PHOSPHATE 10 MG/ML VIAL IV SCH (09:44)
[2020-11-15] MEDS: Z GUARD REMEDY 2 OZ OINT TP SCH (09:45)
[2020-11-15] MEDS: ENOXAPARIN SODIUM 100 MG/ML DISP.SYRIN SQ SCH ×2 (09:46→21:15)
--- NOTE | 2020-11-15 12:00 | NUR ---
RN NOTES PT IS IN PAIN OF 10 LEFT FOOT GOING TO GIVE MORPHINE DUE TO NORCO IN NOT ON THE LIST
[2020-11-15 12:10] LABS: BASOPHILS % (AUTO) 0.2 % (0.0-2.0); EOSINOPHILS % (AUTO) 0.1 % (0.0-6.0); HEMATOCRIT 27 % (39-51); HEMOGLOBIN 9.1 g/dL (13.5-17.5); LYMPHOCYTES # (AUTO) 0.5 /CMM (0.8-4.8); LYMPHOCYTES % (AUTO) 6.4 % (20.0-44.0); MEAN CORPUSCULAR HGB CONC 33 g/dl (31.0-36.0); MEAN CORPUSCULAR VOLUME 94 fL (80-96); MONOCYTES # (AUTO) 0.2 /CMM (0.1-1.30); MONOCYTES % (AUTO) 2.7 % (2.0-12.0); NEUTROPHILS # (AUTO) 7.3 /CMM (1.8-8.9); NEUTROPHILS % (AUTO) 90.6 % (43.0-81.0); PLATELET COUNT (AUTO) 261 /CMM (150-450); RED BLOOD CELL COUNT(AUTO) 2.91 MIL/uL (4.5-6.0)
--- NOTE | 2020-11-15 14:00 | NUR ---
RN NOTES PT HAS NO SOB OR RESPIRATORY DISTRESS
[2020-11-15 14:05] LABS: ALANINE AMINOTRANSFERASE 12 U/L (12-78); ALKALINE PHOSPHATASE 49 U/L (46-116); ASPARTATE AMINOTRANSFERASE 34 U/L (15-37); BILIRUBIN,TOTAL 0.3 mg/dL (0.2-1.0); CALCIUM, SERUM 8.3 mg/dL (8.5-10.1); CARBON DIOXIDE 27 mmol/L (21-32); CHLORIDE 102 mmol/L (98-107); CREATININE 1.4 mg/dL (0.6-1.3); GLUCOSE 176 mg/dL (74-106); SODIUM SERUM 138 mmol/L (136-145); TOTAL PROTEIN, SERUM 5.8 g/dL (6.4-8.2); UREA NITROGEN, BLOOD 18 mg/dL (7-18)
[2020-11-15] MEDS: VANCOMYCIN 1.25 GM in IV D5W 250 ML IV SCH (15:15)
[2020-11-15] MEDS ORDERED: NEUTRA PHOS 1 POWD.PACKET PO ONE (15:30)
--- NOTE | 2020-11-15 17:30 | NUR ---
RN NOTES CONVALESCENCE PLASMA WAS GIVEN NO REACTION NOTED
[2020-11-15] MEDS ORDERED: REMDESIVIR (CHARGED) 200 MG, *LOADING DOSE 1 EA in IV NS 0.9% 210 ML IV ONE ×2 (18:00)
--- NOTE | 2020-11-15 19:08 | NUR ---
RN CLOSING NOTE NO ACUTE CHANGES. ALL NEEDS MET. AFETY MEASUREMENTS ARE IMPLEMENTED PER HOSPITAL PROTOCOL. SIDE RAILS ARE UP CALL LIGHT WITHIN THE REACH WILL ENDORSE TO MARTA MIRANDA FOR ARELY
[2020-11-15 20:55] LABS: CHOLESTEROL 112 mg/dL (<200); HDL CHOLESTEROL 34 mg/dL (40-60); LDL 60 mg/dL (0-99); TRIGLYCERIDES 130 mg/dL (30-150)
[2020-11-15] MEDS: AZITHROMYCIN 250 MG TABLET PO SCH (21:14)
[2020-11-15 21:36] LABS: THYROID STIMULATING HORMONE 4.344 uIU/mL (0.358-3.74)
[2020-11-15] MEDS ORDERED: MEROPENEM 1 G VIAL IV ONE (23:57)
[2020-11-16] VITALS: BP 187/101
[2020-11-16] MEDS: MEROPENEM 1 G in IV NS 0.9% 100 ML IV SCH ×4 (00:34→22:32)
[2020-11-16] MEDS: hydrALAZINE HCL 25 MG TABLET PO PRN (01:03)
[2020-11-16 04:00] VITALS: BP 161/96
[2020-11-16 07:24] LABS: BASOPHILS % (AUTO) 0.1 % (0.0-2.0); HEMATOCRIT 23 % (39-51); HEMOGLOBIN 7.9 g/dL (13.5-17.5); LYMPHOCYTES # (AUTO) 0.4 /CMM (0.8-4.8); LYMPHOCYTES % (AUTO) 4.3 % (20.0-44.0); MEAN CORPUSCULAR HGB CONC 34 g/dl (31.0-36.0); MEAN CORPUSCULAR VOLUME 93 fL (80-96); MONOCYTES # (AUTO) 0.4 /CMM (0.1-1.30); MONOCYTES % (AUTO) 4.6 % (2.0-12.0); NEUTROPHILS # (AUTO) 7.9 /CMM (1.8-8.9); PLATELET COUNT (AUTO) 250 /CMM (150-450); RED BLOOD CELL COUNT(AUTO) 2.49 MIL/uL (4.5-6.0); WHITE BLOOD COUNT (AUTO) 8.7 K/uL (4.3-11.0)
[2020-11-16 07:31] LABS: CALCIUM, SERUM 7.8 mg/dL (8.5-10.1); CARBON DIOXIDE 22 mmol/L (21-32); CHLORIDE 101 mmol/L (98-107); CREATININE 1.5 mg/dL (0.6-1.3); GLUCOSE 233 mg/dL (74-106); PHOSPHORUS 3.2 mg/dL (2.5-4.9); POTASSIUM 4.2 mmol/L (3.5-5.1); SODIUM SERUM 136 mmol/L (136-145); UREA NITROGEN, BLOOD 26 mg/dL (7-18)
--- NOTE | 2020-11-16 07:46 | NUR ---
PT STAYED STABLE, NO ACUTE CHANGES REPORT GIVEN TO INCOMING SHIFT FOR ARELY.
--- NOTE | 2020-11-16 07:50 | NUR ---
TELE/RN OPENING NOTES RECEIVED PATIENT IN BED. PATIENT IN NO APPARENT RESPIRATORY DISTRESS NOTED. NO COMPLAINED OF PAIN NOTED AT THIS TIME. SEEN AND EXAMINED BY MD WITH ORDERS MADE AND CARRIED OUT. ALL DUE MEDICATIONS WAS GIVEN. SAFETY PRECAUTIONS WAS IN PLACED. SIDE RIALS UP X2. CALL LIGHT WITHIN REACH. WILL ENDORSED TO YARN MERCERIZER OPERATOR FOR ARELY.
[2020-11-16 08:00] VITALS: BP 171/100
[2020-11-16] MEDS: Z GUARD REMEDY 2 OZ OINT TP SCH (09:00)
[2020-11-16 09:16] LABS: ALANINE AMINOTRANSFERASE 17 U/L (12-78); ALBUMIN 2.1 g/dL (3.4-5.0); ALKALINE PHOSPHATASE 48 U/L (46-116); ASPARTATE AMINOTRANSFERASE 30 U/L (15-37); BILIRUBIN,DIRECT 0.1 mg/dL (0.0-0.2); BILIRUBIN,TOTAL 0.3 mg/dL (0.2-1.0); TOTAL PROTEIN, SERUM 5.8 g/dL (6.4-8.2)
[2020-11-16] MEDS: ASPIRIN 81 MG TAB.CHEW PO SCH (10:39)
[2020-11-16] MEDS: CLOPIDOGREL BISULFATE 75 MG TABLET PO SCH (10:39)
[2020-11-16] MEDS: FUROSEMIDE 40 MG/4 ML VIAL IV SCH ×2 (10:39→18:24)
[2020-11-16] MEDS: ENOXAPARIN SODIUM 100 MG/ML DISP.SYRIN SQ SCH ×2 (10:42→21:22)
[2020-11-16] MEDS: DEXAMETHASONE SOD PHOSPHATE 10 MG/ML VIAL IV SCH (10:44)
[2020-11-16] MEDS: VANCOMYCIN 1.25 GM in IV D5W 250 ML IV SCH (10:45)
[2020-11-16 12:00] VITALS: BP 140/86
[2020-11-16] MEDS: AMLODIPINE BESYLATE 5 MG TABLET PO SCH (13:05)
[2020-11-16 16:00] VITALS: BP 156/83
[2020-11-16] MEDS ORDERED: REMDESIVIR (CHARGED) 100 MG in IV NS 0.9% 230 ML IV SCH (18:00)
[2020-11-16] MEDS: REMDESIVIR (CHARGED) 100 MG in IV NS 0.9% 230 ML IV SCH (18:24)
--- NOTE | 2020-11-16 18:40 | NUR ---
TELE/RN CLOSING NOTES PATIENT IN BED. PATIENT IN NO APPARENT RESPIRATORY DISTRESS NOTED. NO COMPLAINED OF PAIN NOTED AT THIS TIME. SEEN AND EXAMINED BY MD WITH ORDERS MADE AND CARRIED OUT. ALL DUE MEDICATIONS WAS GIVEN. SAFETY PRECAUTIONS WAS IN PLACED. SIDE RIALS UP X2. CALL LIGHT WITHIN REACH. WILL ENDORSED TO MERCHANDISING MANAGER FOR ARELY.
[2020-11-16 20:00] VITALS: BP 156/84
[2020-11-16] MEDS: AZITHROMYCIN 250 MG TABLET PO SCH (21:21)
[2020-11-17 00:25] VITALS: BP 146/84
[2020-11-17] MEDS: VANCOMYCIN 1.25 GM in IV D5W 250 ML IV SCH ×2 (02:09→21:32)
[2020-11-17 04:00] VITALS: BP 145/78
[2020-11-17] MEDS: MEROPENEM 1 G in IV NS 0.9% 100 ML IV SCH ×3 (05:38→20:45)
[2020-11-17 06:44] LABS: BASOPHILS % (AUTO) 0.2 % (0.0-2.0); HEMATOCRIT 26 % (39-51); HEMOGLOBIN 8.7 g/dL (13.5-17.5); LYMPHOCYTES # (AUTO) 0.8 /CMM (0.8-4.8); LYMPHOCYTES % (AUTO) 10.5 % (20.0-44.0); MEAN CORPUSCULAR HGB CONC 34 g/dl (31.0-36.0); MEAN CORPUSCULAR VOLUME 94 fL (80-96); MONOCYTES # (AUTO) 0.6 /CMM (0.1-1.30); MONOCYTES % (AUTO) 7.5 % (2.0-12.0); NEUTROPHILS # (AUTO) 6.6 /CMM (1.8-8.9); NEUTROPHILS % (AUTO) 81.8 % (43.0-81.0); PLATELET COUNT (AUTO) 246 /CMM (150-450); RED BLOOD CELL COUNT(AUTO) 2.78 MIL/uL (4.5-6.0); WHITE BLOOD COUNT (AUTO) 8.1 K/uL (4.3-11.0)
[2020-11-17 07:18] LABS: ALANINE AMINOTRANSFERASE 17 U/L (12-78); ALBUMIN 2.4 g/dL (3.4-5.0); ALKALINE PHOSPHATASE 53 U/L (46-116); ASPARTATE AMINOTRANSFERASE 33 U/L (15-37); BILIRUBIN,DIRECT 0.2 mg/dL (0.0-0.2); BILIRUBIN,TOTAL 0.4 mg/dL (0.2-1.0); CALCIUM, SERUM 8.4 mg/dL (8.5-10.1); CARBON DIOXIDE 26 mmol/L (21-32); CHLORIDE 99 mmol/L (98-107); CREATININE 1.7 mg/dL (0.6-1.3); GLUCOSE 208 mg/dL (74-106); POTASSIUM 4.2 mmol/L (3.5-5.1); SODIUM SERUM 136 mmol/L (136-145); TOTAL PROTEIN, SERUM 6.4 g/dL (6.4-8.2); UREA NITROGEN, BLOOD 38 mg/dL (7-18)
[2020-11-17 07:54] LABS: FERRITIN 2320 ng/mL (8-388)
[2020-11-17 08:00] VITALS: BP 162/83
--- NOTE | 2020-11-17 08:15 | NUR ---
TELE/RN OPENING NOTES RECEIVED PATIENT IN BED. PATIENT IN NO APPARENT RESPIRATORY DISTRESS NOTED. NO COMPLAINED OF PAIN NOTED AT THIS TIME. TELE MONITOR IN PLACED READING SINUS RHYTHM WITH PVC INVERTED T 80 BPM. WILL CONTINUE TO MONITOR.
[2020-11-17] MEDS: AMLODIPINE BESYLATE 5 MG TABLET PO SCH (09:05)
[2020-11-17] MEDS: CLOPIDOGREL BISULFATE 75 MG TABLET PO SCH (09:05)
[2020-11-17] MEDS: ASPIRIN 81 MG TAB.CHEW PO SCH (09:05)
[2020-11-17] MEDS: DEXAMETHASONE SOD PHOSPHATE 10 MG/ML VIAL IV SCH (09:06)
[2020-11-17] MEDS: FUROSEMIDE 40 MG/4 ML VIAL IV SCH (09:06)
[2020-11-17] MEDS: ENOXAPARIN SODIUM 100 MG/ML DISP.SYRIN SQ SCH ×2 (09:11→21:32)
[2020-11-17] MEDS: Z GUARD REMEDY 2 OZ OINT TP SCH (09:11)
[2020-11-17 12:00] VITALS: BP 166/95
[2020-11-17 16:00] VITALS: BP 143/81
[2020-11-17] MEDS: REMDESIVIR (CHARGED) 100 MG in IV NS 0.9% 230 ML IV SCH (17:20)
--- NOTE | 2020-11-17 19:42 | NUR ---
TELE/RN CLOSING NOTES PATIENT IS ON BED AWAKE ALERT AND ORIENTED X4. PATIENT IN NO APPARENT RESPIRATORY DISTRESS NOTED. NO COMPLAINED OF PAIN NOTED AT THIS TIME. SEEN AND EXAMINED BY MD WITH ORDERS MADE AND CARRIED OUT. ALL DUE MEDICATION WAS GIVE. ON TELE MONITOR READING SINUS RHYTHM WITH PVC. SAFETY PRECAUTIONS WAS IN PLACED. SIDE RAILS UP X 2. CALL LIGHT WITHIN REACH. WILL ENDORSED TO BIBLE TEACHER FOR ARELY.
[2020-11-17 20:00] VITALS: BP 143/89
[2020-11-18 01:30] VITALS: BP 166/86
[2020-11-18] MEDS: hydrALAZINE HCL 25 MG TABLET PO PRN (02:09)
[2020-11-18 04:00] VITALS: BP 151/78
[2020-11-18] MEDS: MEROPENEM 1 G in IV NS 0.9% 100 ML IV SCH ×3 (04:43→21:01)
--- NOTE | 2020-11-18 07:20 | NUR ---
TELE/RN OPENING NOTES RECEIVED PATIENT RESTING IN BED. A/O X4. PATIENT IN NO APPARENT RESPIRATORY DISTRESS NOTED. NO C/O PAIN OR DISCOMFORT NOTED. TELE MONITOR IN PLACE READING SINUS RHYTHM WITH INVERTED T WAVE HR IN THE 80'S, KRISH MIDLINE KEPT SL, BED AT LOWEST POSITION AND LOCKED WITH SIDE RAILS UPX2 AND CALL LIGHT WITH IN REACH WILL CONTINUE TO MONITOR.
[2020-11-18 08:00] VITALS: BP 166/72
[2020-11-18 09:14] LABS: BASOPHILS % (AUTO) 0.2 % (0.0-2.0); HEMATOCRIT 23 % (39-51); HEMOGLOBIN 7.7 g/dL (13.5-17.5); LYMPHOCYTES # (AUTO) 0.7 /CMM (0.8-4.8); LYMPHOCYTES % (AUTO) 9.6 % (20.0-44.0); MEAN CORPUSCULAR HGB CONC 34 g/dl (31.0-36.0); MEAN CORPUSCULAR VOLUME 93 fL (80-96); MONOCYTES # (AUTO) 0.8 /CMM (0.1-1.30); MONOCYTES % (AUTO) 11.4 % (2.0-12.0); NEUTROPHILS # (AUTO) 5.7 /CMM (1.8-8.9); NEUTROPHILS % (AUTO) 78.8 % (43.0-81.0); PLATELET COUNT (AUTO) 196 /CMM (150-450); RED BLOOD CELL COUNT(AUTO) 2.44 MIL/uL (4.5-6.0); WHITE BLOOD COUNT (AUTO) 7.2 K/uL (4.3-11.0)
[2020-11-18 09:21] LABS: CALCIUM, SERUM 7.7 mg/dL (8.5-10.1); CARBON DIOXIDE 27 mmol/L (21-32); CHLORIDE 102 mmol/L (98-107); CREATININE 1.4 mg/dL (0.6-1.3); GLUCOSE 248 mg/dL (74-106); POTASSIUM 4.1 mmol/L (3.5-5.1); SODIUM SERUM 137 mmol/L (136-145); UREA NITROGEN, BLOOD 41 mg/dL (7-18)
[2020-11-18 09:26] LABS: ALBUMIN 2.2 g/dL (3.4-5.0); BILIRUBIN,DIRECT 0.2 mg/dL (0.0-0.2); BILIRUBIN,TOTAL 0.4 mg/dL (0.2-1.0); TOTAL PROTEIN, SERUM 5.6 g/dL (6.4-8.2)
[2020-11-18] MEDS: ENOXAPARIN SODIUM 100 MG/ML DISP.SYRIN SQ SCH ×2 (09:44→21:04)
[2020-11-18] MEDS: ASPIRIN 81 MG TAB.CHEW PO SCH (09:45)
[2020-11-18] MEDS: AMLODIPINE BESYLATE 5 MG TABLET PO SCH (09:47)
[2020-11-18] MEDS: CLOPIDOGREL BISULFATE 75 MG TABLET PO SCH (09:47)
[2020-11-18] MEDS: DEXAMETHASONE SOD PHOSPHATE 10 MG/ML VIAL IV SCH (09:52)
[2020-11-18] MEDS: Z GUARD REMEDY 2 OZ OINT TP SCH (09:57)
[2020-11-18 09:59] LABS: FERRITIN 1910 ng/mL (8-388)
[2020-11-18 10:53] LABS: IRON, SERUM 29 ug/dl (50-175); TOTAL IRON BINDING CAPACITY 170 ug/dl (250-450)
[2020-11-18 12:00] VITALS: BP 161/83
[2020-11-18] MEDS: VANCOMYCIN 1.25 GM in IV D5W 250 ML IV SCH (15:03)
[2020-11-18 16:00] VITALS: BP 167/92
[2020-11-18] MEDS: REMDESIVIR (CHARGED) 100 MG in IV NS 0.9% 230 ML IV SCH (17:13)
--- NOTE | 2020-11-18 18:10 | NUR ---
TELE/RN OPENING NOTES PATIENT RESTING IN BED. A/O X4. PATIENT IN NO APPARENT RESPIRATORY DISTRESS NOTED. NO C/O PAIN OR DISCOMFORT NOTED. TELE MONITOR IN PLACE READING SINUS RHYTHM WITH INVERTED T WAVE HR IN THE 80'S, KRISH MIDLINE KEPT SL, BED AT LOWEST POSITION AND LOCKED WITH SIDE RAILS UPX2 AND CALL LIGHT WITH IN REACH WILL ENDORSE TO ONCOMING SHIFT
--- NOTE | 2020-11-18 19:30 | NUR ---
TELE/RN OPENING NOTES RECEIVED PATIENT RESTING IN BED. PATIENT IS ALERT AND ORIENTED X 4. NO SIGNS OF SOB OR RESPIRATORY DISTRESS NOTED. BREATHING IS EVEN AND UNLABORED. TELE READING SR. PATIENT IN NO SIGNS OF DISTRESS. PATIENT HAS IV ACCESS ON RIGHT UA MIDLINE INTACT. SAFETY MEASURES ARE IN PLACE, BED IS LOCKED AND PLACED IN THE LOW POSITION, SIDE RAILS UP X 2. CALL LIGHT IS WITHIN REACH. WILL MONITOR THROUGH OUT SHIFT.
[2020-11-18 20:00] VITALS: BP 157/74
[2020-11-19] VITALS: BP 165/78
[2020-11-19 04:00] VITALS: BP 165/86
[2020-11-19] MEDS: MEROPENEM 1 G in IV NS 0.9% 100 ML IV SCH ×3 (04:47→21:40)
[2020-11-19 06:09] LABS: BASOPHILS % (AUTO) 0.3 % (0.0-2.0); HEMATOCRIT 21 % (39-51); HEMOGLOBIN 7.2 g/dL (13.5-17.5); LYMPHOCYTES # (AUTO) 0.7 /CMM (0.8-4.8); LYMPHOCYTES % (AUTO) 7.5 % (20.0-44.0); MEAN CORPUSCULAR HGB CONC 34 g/dl (31.0-36.0); MEAN CORPUSCULAR VOLUME 93 fL (80-96); MONOCYTES # (AUTO) 0.9 /CMM (0.1-1.30); MONOCYTES % (AUTO) 9.9 % (2.0-12.0); NEUTROPHILS # (AUTO) 7.8 /CMM (1.8-8.9); NEUTROPHILS % (AUTO) 82.3 % (43.0-81.0); PLATELET COUNT (AUTO) 219 /CMM (150-450); RED BLOOD CELL COUNT(AUTO) 2.28 MIL/uL (4.5-6.0); WHITE BLOOD COUNT (AUTO) 9.5 K/uL (4.3-11.0)
[2020-11-19 06:15] LABS: CARBON DIOXIDE 28 mmol/L (21-32); CHLORIDE 104 mmol/L (98-107); CREATININE 1.4 mg/dL (0.6-1.3); GLUCOSE 294 mg/dL (74-106); POTASSIUM 4.3 mmol/L (3.5-5.1); SODIUM SERUM 138 mmol/L (136-145); UREA NITROGEN, BLOOD 43 mg/dL (7-18)
[2020-11-19 06:24] LABS: ALBUMIN 2.1 g/dL (3.4-5.0); BILIRUBIN,DIRECT 0.2 mg/dL (0.0-0.2); BILIRUBIN,TOTAL 0.4 mg/dL (0.2-1.0); TOTAL PROTEIN, SERUM 5.4 g/dL (6.4-8.2)
--- NOTE | 2020-11-19 06:45 | NUR ---
TELE/RN CLOSING NOTES PATIENT RESTING IN BED WATCHING. PATIENT IS ALERT AND ORIENTED X 4. NO SIGNS OF SOB OR RESPIRATORY DISTRESS NOTED. BREATHING IS EVEN AND UNLABORED. TELE READING SR. PATIENT IN NO SIGNS OF DISTRESS. PATIENT HAS IV ACCESS ON RIGHT UA MIDLINE INTACT. ALL PATIENT NEEDS HAVE BEEN MET DURING SHIFT. SAFETY MEASURES ARE IN PLACE, BED IS LOCKED AND PLACED IN THE LOW POSITION, SIDE RAILS UP X 2. CALL LIGHT IS WITHIN REACH. WILL ENDORSE CARE TO DAY SHIFT NURSE.
--- NOTE | 2020-11-19 07:30 | NUR ---
RN OPENING NOTES PATIENT RESTING IN BED WATCHING TV. PATIENT IS ALERT AND ORIENTED X 4. NO SIGNS OF SOB OR RESPIRATORY DISTRESS NOTED. BREATHING IS EVEN AND UNLABORED. OXYGEN SATURATION CURRENTLY 100% WITH 4L O2 THERAPY. TELE READING SR. PATIENT IN NO SIGNS OF DISTRESS. PATIENT HAS IV ACCESS ON RIGHT UA MIDLINE INTACT AND PATENT. SAFETY MEASURES ARE IN PLACE, BED IS LOCKED AND PLACED IN THE LOW POSITION, SIDE RAILS UP X 2. CALL LIGHT IS WITHIN REACH. WILL CONTINUE TO MONITOR AND PROVIDE CARE.
[2020-11-19 08:00] VITALS: BP 147/71
[2020-11-19] MEDS: VANCOMYCIN 1.25 GM in IV D5W 250 ML IV SCH (08:00)
[2020-11-19] MEDS: ENOXAPARIN SODIUM 100 MG/ML DISP.SYRIN SQ SCH ×2 (08:37→20:54)
[2020-11-19] MEDS: CLOPIDOGREL BISULFATE 75 MG TABLET PO SCH (08:38)
[2020-11-19] MEDS: ASPIRIN 81 MG TAB.CHEW PO SCH (08:38)
[2020-11-19] MEDS: DEXAMETHASONE SOD PHOSPHATE 10 MG/ML VIAL IV SCH (08:39)
[2020-11-19] MEDS: AMLODIPINE BESYLATE 5 MG TABLET PO SCH (08:39)
[2020-11-19] MEDS: Z GUARD REMEDY 2 OZ OINT TP SCH (08:40)
[2020-11-19 12:00] VITALS: BP 162/87
[2020-11-19] MEDS: hydrALAZINE HCL 25 MG TABLET PO PRN (12:37)
--- NOTE | 2020-11-19 15:00 | NUR ---
DURING PATIENT ROUNDING, NOTICED BLOOD ON PATIENT'S PILLOW. ASSESSED TO SEE THAT PATIENT'S MIDLINE WAS PULLED OUT AND ON THE FLOOR. PATIENT STATED HE WASN'T SURE HOW BUT STATED "IT MIGHT HAVE GOTTEN BAD DURING THE FLIGHT I TOOK EARLIER TODAY". MADE AWARE.
[2020-11-19 16:00] VITALS: BP 164/68
--- NOTE | 2020-11-19 19:31 | NUR ---
RN CLOSING NOTES PATIENT RESTING IN BED WATCHING TV. PATIENT IS ALERT AND ORIENTED X 4, HAVING HALLUCINATIONS. PATIENT IS RESTLESS, BUT NO SIGNS OF SOB OR RESPIRATORY DISTRESS NOTED. BREATHING IS EVEN AND UNLABORED. OXYGEN SATURATION CURRENTLY 100% WITH 4L O2 THERAPY. TELE READING SR. PATIENT IN NO SIGNS OF DISTRESS. NO IV ACCESS AT THIS TIME/ SAFETY MEASURES ARE IN PLACE, BED IS LOCKED AND PLACED IN THE LOW POSITION, SIDE RAILS UP X 2. CALL LIGHT IS WITHIN REACH. WILL ENDORSE TO FURNITURE REFINISHER FOR ARELY.
--- NOTE | 2020-11-19 19:40 | NUR ---
RN OPENING NOTE RECEIVED PATIENT IN BED RESTING ALERT ORIENTED X3 VERBALLY RESPONSIVE ON 4L OXYGEN VIA NASAL CANNULA,O2:96% NON COMPLIANCE GETTING OUT FROM BED,NOT ABLE TO WALK BY SELF, EDUCATED HIM CONTINUE TO MONITOR,CALL LIGHT WITHIN REACH,BED IS LOW POSITON AND LOCKED CONTINUE TO MONITOR.
[2020-11-19 20:00] VITALS: BP 125/81
[2020-11-19] MEDS ORDERED: REMDESIVIR (CHARGED) 100 MG in IV NS 0.9% 230 ML IV SCH (21:00)
[2020-11-20] VITALS: BP 146/89
[2020-11-20 04:00] VITALS: BP 159/92
[2020-11-20] MEDS: MEROPENEM 1 G in IV NS 0.9% 100 ML IV SCH ×2 (04:11→17:47)
[2020-11-20] MEDS: hydrALAZINE HCL 25 MG TABLET PO PRN ×2 (05:30→15:39)
[2020-11-20 07:23] LABS: BASOPHILS # (AUTO) 0.1 /CMM (0.0-0.2); BASOPHILS % (AUTO) 0.4 % (0.0-2.0); HEMATOCRIT 24 % (39-51); HEMOGLOBIN 7.9 g/dL (13.5-17.5); LYMPHOCYTES % (AUTO) 6.4 % (20.0-44.0); MEAN CORPUSCULAR HGB CONC 33 g/dl (31.0-36.0); MEAN CORPUSCULAR VOLUME 94 fL (80-96); MONOCYTES # (AUTO) 1.8 /CMM (0.1-1.30); MONOCYTES % (AUTO) 11.8 % (2.0-12.0); NEUTROPHILS # (AUTO) 12.4 /CMM (1.8-8.9); NEUTROPHILS % (AUTO) 81.4 % (43.0-81.0); PLATELET COUNT (AUTO) 281 /CMM (150-450); RED BLOOD CELL COUNT(AUTO) 2.54 MIL/uL (4.5-6.0); WHITE BLOOD COUNT (AUTO) 15.2 K/uL (4.3-11.0)
--- NOTE | 2020-11-20 07:25 | NUR ---
RN CLOSING NOTE PATIENT REMAINS ON ALERT ORIENTED X3 VERBALLY RESPONSIVE NO SOB NOT ACUTE DISTRESS NOTED, ON 4L OXYGEN VIA NASAL CANNULA, O2:96% NOTED ALL DUE MEDS GIVEN MD ORDERED,KEPT CLEAN AND DRY ALL THE TIME,ALL NEEDS MET.ENDORSE NEXT COMING SHIFT FOR CONTINUATION OF CARE.
--- NOTE | 2020-11-20 07:27 | NUR ---
RN OPENING NOTES PATIENT RESTING IN BED WATCHING TV. PATIENT IS ALERT AND ORIENTED X 4. NO SIGNS OF SOB OR RESPIRATORY DISTRESS NOTED. BREATHING IS EVEN AND UNLABORED. OXYGEN SATURATION CURRENTLY 98% WITH 4L O2 THERAPY. TELE READING SR. PATIENT IN NO SIGNS OF DISTRESS. PATIENT HAS IV ACCESS ON RIGHT UA MIDLINE INTACT AND PATENT. SAFETY MEASURES ARE IN PLACE, BED IS LOCKED AND PLACED IN THE LOW POSITION, SIDE RAILS UP X 2. CALL LIGHT IS WITHIN REACH. WILL CONTINUE TO MONITOR AND PROVIDE CARE. Addendum: 11/20/20 at 1856 by ANNALISE GANNON RN ERROR- NO MIDLINE ACCESS AT THAT TIME
[2020-11-20 08:00] VITALS: BP 166/92
[2020-11-20 08:01] LABS: ALANINE AMINOTRANSFERASE 24 U/L (12-78); ALBUMIN 2.5 g/dL (3.4-5.0); ALKALINE PHOSPHATASE 55 U/L (46-116); ASPARTATE AMINOTRANSFERASE 25 U/L (15-37); BILIRUBIN,DIRECT 0.2 mg/dL (0.0-0.2); BILIRUBIN,TOTAL 0.5 mg/dL (0.2-1.0); CALCIUM, SERUM 8.2 mg/dL (8.5-10.1); CARBON DIOXIDE 28 mmol/L (21-32); CHLORIDE 106 mmol/L (98-107); CREATININE 1.4 mg/dL (0.6-1.3); GLUCOSE 328 mg/dL (74-106); POTASSIUM 4.4 mmol/L (3.5-5.1); SODIUM SERUM 142 mmol/L (136-145); TOTAL PROTEIN, SERUM 5.9 g/dL (6.4-8.2); UREA NITROGEN, BLOOD 42 mg/dL (7-18)
[2020-11-20] MEDS: DEXAMETHASONE SOD PHOSPHATE 10 MG/ML VIAL IV SCH ×2 (09:00→09:16)
--- NOTE | 2020-11-20 09:00 | NUR ---
UNABLE TO GIVE 0900 IV MEDICATION DUE TO NO IV ACCESS/LINE. UNABLE TO START IV. WILL CONTACT FOR MIDLINE PLACEMENT ORDER.
[2020-11-20] MEDS: ASPIRIN 81 MG TAB.CHEW PO SCH (09:16)
[2020-11-20] MEDS: AMLODIPINE BESYLATE 5 MG TABLET PO SCH (09:17)
[2020-11-20] MEDS: CLOPIDOGREL BISULFATE 75 MG TABLET PO SCH (09:17)
[2020-11-20] MEDS: ENOXAPARIN SODIUM 100 MG/ML DISP.SYRIN SQ SCH ×2 (09:18→20:41)
[2020-11-20] MEDS: Z GUARD REMEDY 2 OZ OINT TP SCH (09:19)
[2020-11-20 12:00] VITALS: BP 164/83
--- NOTE | 2020-11-20 13:00 | NUR ---
UNABLE TO GIVE IV MEDICATION DUE TO NO IV ACCESS. CURRENTLY AWAITING MIDLINE PLACEMENT.
--- NOTE | 2020-11-20 15:20 | NUR ---
Social Service Note: INOCENCIA consult requested by . Pt is a 75 year old male who was admitted to the hospital and is currently positive for COVID. INOCENCIA called the pts son, Matteo ([phone]), and informed him about the DPOA paperwork. INOCENCIA stated that the pt would need to be alert and oriented to be able to sign the paperwork. INOCENCIA also assisted the pts son in looking up the forms on the internet. INOCENCIA then provided him with the phone number for the [facility] ([phone]). INOCENCIA stated that someone would follow up or that he is welcome to call with any other questions.
[2020-11-20 16:00] VITALS: BP 177/92
--- NOTE | 2020-11-20 18:55 | NUR ---
RN CLOSING NOTES PATIENT RESTING IN BED WATCHING TV. PATIENT IS ALERT AND ORIENTED X 4. NO SIGNS OF SOB OR RESPIRATORY DISTRESS NOTED. BREATHING IS EVEN AND UNLABORED. OXYGEN SATURATION CURRENTLY 98% WITH 4L O2 THERAPY. TELE READING SR. PATIENT IN NO SIGNS OF DISTRESS. PATIENT HAS IV ACCESS ON LEFT UA MIDLINE INTACT AND PATENT. SAFETY MEASURES ARE IN PLACE, BED IS LOCKED AND PLACED IN THE LOW POSITION, SIDE RAILS UP X 2. CALL LIGHT IS WITHIN REACH. WILL CONTINUE TO MONITOR AND PROVIDE CARE.
--- NOTE | 2020-11-20 19:39 | NUR ---
RN OPENING NOTES PATIENT RECEIVED RESTING IN BED A/O X 3. ON 4L OF O2 WITH BREATHING EVEN AND UNLABORED, NO SOB NOTED. NO SIGNS OF ACUTE DISTRESS. NO COMPLAINTS OF PAIN OR DISCOMFORT AT THE MOMENT. LEFT UA MIDLINE #18 PATENT AND INTACT. BILATERAL SOFT WRIST RESTRAINTS IN PLACE WITH NO REDNESS ON SKIN, PULSE PRESENT. SAFETY PRECAUTIONS IN PLACE WITH BED IN LOWEST POSITION, CALL LIGHT WITHIN REACH, BREAKS ON, SIDE RAILS UP.
[2020-11-20 20:00] VITALS: BP 159/74
[2020-11-21] VITALS (10 sets, daily range): BP systolic 109–167; BP diastolic 58–92
[2020-11-21] MEDS: MEROPENEM 1 G in IV NS 0.9% 100 ML IV SCH ×3 (00:50→17:26)
--- NOTE | 2020-11-21 04:00 | NUR ---
PATIENT REMOVED MIDLINE AND TELE MONITORS CLAIMING THERE ARE "BUGS ON HIM". RESTRAINTS BACK. NEW IV INITIATED ON LEFT WRIST #22 PATENT AND INTACT.
[2020-11-21 06:46] LABS: BASOPHILS % (AUTO) 0.1 % (0.0-2.0); EOSINOPHILS % (AUTO) 0.1 % (0.0-6.0); LYMPHOCYTES # (AUTO) 1.2 /CMM (0.8-4.8); LYMPHOCYTES % (AUTO) 9.1 % (20.0-44.0); MEAN CORPUSCULAR HGB CONC 33 g/dl (31.0-36.0); MEAN CORPUSCULAR VOLUME 95 fL (80-96); MONOCYTES % (AUTO) 7.4 % (2.0-12.0); NEUTROPHILS # (AUTO) 10.8 /CMM (1.8-8.9); NEUTROPHILS % (AUTO) 83.3 % (43.0-81.0); PLATELET COUNT (AUTO) 228 /CMM (150-450); RED BLOOD CELL COUNT(AUTO) 2.07 MIL/uL (4.5-6.0)
--- NOTE | 2020-11-21 06:49 | NUR ---
RN CLOSING NOTES PATIENT RESTING IN BED A/O X 2. ON 2L OF O2 WITH BREATHING EVEN AND UNLABORED, NO SOB NOTED. NO SIGNS OF ACUTE DISTRESS. NO COMPLAINTS OF PAIN OR DISCOMFORT AT THE MOMENT. LEFT WRIST #22 PATENT AND INTACT. BILATERAL SOFT WRIST RESTRAINTS IN PLACE WITH NO REDNESS ON SKIN, PULSE PRESENT. SAFETY PRECAUTIONS IN PLACE WITH BED IN LOWEST POSITION, CALL LIGHT WITHIN REACH, BREAKS ON, SIDE RAILS UP. ALL NEEDS ATTENDED TO. PATIENT KEPT CLEAN AND DRY. WILL ENDORSE TO ONCOMING SHIFT ABOUT ARELY.
[2020-11-21 07:08] LABS: CALCIUM, SERUM 8.2 mg/dL (8.5-10.1); CREATININE 1.2 mg/dL (0.6-1.3)
[2020-11-21 07:17] LABS: HEMATOCRIT 20 % (39-51)
[2020-11-21 07:18] LABS: HEMOGLOBIN 6.5 g/dL (13.5-17.5)
--- NOTE | 2020-11-21 07:21 | NUR ---
RECEIVED CRITICAL LAB VALUE FROM LAB OF HGB 6.5 AND HCT 20. WILL REPORT TO MD AND AWAIT ORDERS.
--- NOTE | 2020-11-21 07:30 | NUR ---
PATIENT WAS AOX1. RESTRAINTS REMAINED INTACT. SKIN WAS WARM TO TOUCH AND INTACT. 5 LEAD REMAINED ON CHEST. BED REMAINS AT SEMI FOWLERS AND AT LOWEST LEVEL TO THE GROUND. WILL CONTINUE TO MONITOR VITALS, SKIN INTEGRITY, AND VITAL SIGNS.
--- NOTE | 2020-11-21 07:36 | NUR ---
PT ASLEEP AND EASILY AROUSABLE. 2 L/MIN NC RUNNING ORDERED. A/OX2. L WRIST IV FLUSHED PATENT. DRESSING DRY INTACT. NO SIGNS OF RESP DISTRESS NOTED. SKIN WARM FLUSHED. DENIES PAIN. HOB ELEVATED. WILL MONITOR VS, LABS, RESP STATUS. WILL MONITOR FOR SIGNS OF BLEEDING. WILL REPORT TO MD NEEDED. RAILS UP X2, BED LOW, LOCKED, HOB ELEVATED, CALL LIGHT INREACH. WILL TURN Q2H AND REPOSITION.
[2020-11-21] MEDS: DEXAMETHASONE SOD PHOSPHATE 10 MG/ML VIAL IV SCH (08:43)
[2020-11-21] MEDS: AMLODIPINE BESYLATE 5 MG TABLET PO SCH (08:43)
[2020-11-21] MEDS: ASPIRIN 81 MG TAB.CHEW PO SCH (08:44)
[2020-11-21] MEDS: CLOPIDOGREL BISULFATE 75 MG TABLET PO SCH (08:44)
[2020-11-21] MEDS: ENOXAPARIN SODIUM 100 MG/ML DISP.SYRIN SQ SCH ×2 (08:44→21:14)
[2020-11-21] MEDS: Z GUARD REMEDY 2 OZ OINT TP SCH (08:45)
[2020-11-21 09:38] LABS: LYMPHOCYTES % (MANUAL) 10 % (16-48); MONOCYTES % (MANUAL) 6 % (0-11.0); NEUTROPHILS % (MANUAL) 84 (42-76)
--- NOTE | 2020-11-21 19:25 | NUR ---
PT ASLEEP AND EASILY AROUSABLE. 2 L/MIN NC RUNNING ORDERED. A/OX2. KRISH MIDLINE FLUSHED. DRESSING INTACT. NO SIGNS OF RESP DISTRESS NOTED. SKIN WARM FLUSHED. DENIES PAIN. HOB ELEVATED. MONITORED VS, LABS, RESP STATUS. MONITORED FOR SIGNS OF BLEEDING. REPORTED TO MD NEEDED. RAILS UP X2, BED LOW, LOCKED, HOB ELEVATED, CALL LIGHT INREACH. TURNED Q2H AND REPOSITION. ALL ORDERS IMPLEMENTED AND PT TOLERATED WELL. ENDORSED TO PM RN.
--- NOTE | 2020-11-21 19:30 | NUR ---
RN OPENING NOTES Received patient, asleep on bed. No s/sx of discomfort noted at this time. On O2 via NC @ 2LPM, saturating well, no respiratory distress noted. On tele monitor with uncontrolled A-fib noted. Kept on bed clean, dry and comfortable. On fall and aspiration precautions. Will continue to monitor accordingly.
[2020-11-21 19:31] LABS: HEMOGLOBIN 6.5 g/dL (13.5-17.5)
--- NOTE | 2020-11-21 19:32 | NUR ---
RECEIVED CRITICAL HGB 6.5 AND HCT 21. AWAITING 1 UNIT PRBC ORDERED.
[2020-11-22] MEDS: MEROPENEM 1 G in IV NS 0.9% 100 ML IV SCH ×3 (00:01→17:11)
[2020-11-22 06:17] LABS: BASOPHILS % (AUTO) 0.3 % (0.0-2.0); EOSINOPHILS % (AUTO) 0.4 % (0.0-6.0); HEMATOCRIT 23 % (39-51); HEMOGLOBIN 7.6 g/dL (13.5-17.5); LYMPHOCYTES # (AUTO) 0.5 /CMM (0.8-4.8); LYMPHOCYTES % (AUTO) 7.5 % (20.0-44.0); MEAN CORPUSCULAR HGB CONC 33 g/dl (31.0-36.0); MEAN CORPUSCULAR VOLUME 95 fL (80-96); MONOCYTES # (AUTO) 0.5 /CMM (0.1-1.30); MONOCYTES % (AUTO) 7.9 % (2.0-12.0); NEUTROPHILS # (AUTO) 5.6 /CMM (1.8-8.9); NEUTROPHILS % (AUTO) 83.9 % (43.0-81.0); PLATELET COUNT (AUTO) 181 /CMM (150-450); WHITE BLOOD COUNT (AUTO) 6.6 K/uL (4.3-11.0)
[2020-11-22 06:27] LABS: CALCIUM, SERUM 8.1 mg/dL (8.5-10.1); CREATININE 1.3 mg/dL (0.6-1.3); MAGNESIUM 2.6 mg/dL (1.8-2.4); PHOSPHORUS 3.4 mg/dL (2.5-4.9); POTASSIUM 4.5 mmol/L (3.5-5.1)
--- NOTE | 2020-11-22 06:39 | NUR ---
RN CLOSING NOTES Pt asleep on bed. No new unusualities noted. Afebrile the whole shift. No new complaints made. S/P 1unit PRBC BT done, no ASE noted. All nursing needs attended, due meds given as ordered. Kept on bed clean, dry and comfortable. Endorsed.
[2020-11-22] MEDS: AMLODIPINE BESYLATE 5 MG TABLET PO SCH (09:30)
[2020-11-22] MEDS: GLUCERNA SHAKE 237 ML CAN PO SCH ×2 (11:00→17:00)
[2020-11-22] MEDS ORDERED: DILTIAZEM HCL 25 MG IV IV ONE (11:30)
[2020-11-22] MEDS ORDERED: ENOXAPARIN SODIUM 80 MG/0.8 ML DISP.SYRIN SQ SCH (11:30)
[2020-11-22] MEDS: Z GUARD REMEDY 2 OZ OINT TP SCH (12:01)
[2020-11-22] MEDS: ASPIRIN 81 MG TAB.CHEW PO SCH (12:10)
[2020-11-22] MEDS: ENOXAPARIN SODIUM 100 MG/ML DISP.SYRIN SQ SCH ×2 (12:11→20:55)
[2020-11-22] MEDS: METOPROLOL TARTRATE 50 MG TABLET PO SCH ×2 (15:45→20:54)
--- NOTE | 2020-11-22 18:57 | NUR ---
CHANGE OF SHIFT REPORT PT RESTING COMFORTABLY IN BED. NO S/S OR C/O PAIN OR DISTRESS NOTED. SIDE RAILS UP X2, CALL LIGHT LEFT WITHIN REACH. PT KEPT CLEAN, DRY, AND COMFORTABLE. PT COMPLIANT WITH MEDICATIONS. PT CALM AND COOPERATIVE. NEW ORDER OF PROTONIX. NO SIGNIFICANT CHANGES SINCE PREVIOUS SHIFT. WILL GIVE REPORT TO ORI HOPPER.
--- NOTE | 2020-11-22 19:45 | NUR ---
MAINSPRING STRIP GAUGER OPENING NOTES PATIENT AWAKE IN BED. A/OX2. ON RA; NO S/S OF ACUTE RESPIRATORY DISTRESS; BREATHING IS EVEN AND UNLABORED; CONTINUOUS PULSE OX READING 95%. TELE MONITOR READING A-FIB, HEART RATE 110-120. NO C/O PAIN. SOFT BILATERAL WRIST RESTRAINTS CURRENTLY OFF; PATIENT CALM AND COOPERATIVE. MIDLINE PRESENT ON RIGHT UPPER ARM, INTACT & PATENT, HEP LOCKED. SAFETY MEASURES IN PLACE AND PATIENT'S NEEDS MET. BED LOCKED, HOB ELEVATED, SIDE RAILS X2, CALL LIGHT WITHIN REACH. WILL CONTINUE TO MONITOR.
[2020-11-22 20:00] VITALS: BP 133/92
[2020-11-22] MEDS ORDERED: ENOXAPARIN SODIUM 100 MG/ML DISP.SYRIN SQ SCH (21:00)
[2020-11-23] VITALS: BP 143/84
--- NOTE | 2020-11-23 00:11 | NUR ---
MEMORANDUM STATEMENT CLERK NOTE PATIENT CONFUSED AND AGITATED; TRYING TO GET OUT OF BED AND REMOVING NASAL CANULA; UNABLE TO REORIENT PATIENT. CONTINUOUS PULSE OX READING 88%. SOFT RESTRAINT APPLIED TO LEFT WRIST. SAFETY MEASURES IN PLACE. WILL CONTINUE TO MONITOR.
[2020-11-23] MEDS: MEROPENEM 1 G in IV NS 0.9% 100 ML IV SCH ×3 (01:11→16:54)
--- NOTE | 2020-11-23 02:20 | NUR ---
LUMBER BEARER NOTE PATIENT'S SPO2 96 ON RA; NO S/S ACUTE RESPIRATORY DISTRESS; BREATHING IS EVEN AND UNLABORED. SOFT RESTRAINT REMAINS IN PLACE ON LEFT WRIST; SKIN CIRCULATION WNL. WILL CONTINUE TO MONITOR.
[2020-11-23 04:00] VITALS: BP 144/88
[2020-11-23 06:18] LABS: CALCIUM, SERUM 7.8 mg/dL (8.5-10.1); CREATININE 1.3 mg/dL (0.6-1.3); MAGNESIUM 2.6 mg/dL (1.8-2.4); POTASSIUM 4.2 mmol/L (3.5-5.1)
[2020-11-23 06:25] LABS: EOSINOPHILS % (AUTO) 1.1 % (0.0-6.0); HEMATOCRIT 25 % (39-51); HEMOGLOBIN 8.1 g/dL (13.5-17.5); LYMPHOCYTES # (AUTO) 0.9 /CMM (0.8-4.8); LYMPHOCYTES % (AUTO) 8.9 % (20.0-44.0); MEAN CORPUSCULAR HGB CONC 32 g/dl (31.0-36.0); MEAN CORPUSCULAR VOLUME 97 fL (80-96); MONOCYTES # (AUTO) 0.5 /CMM (0.1-1.30); MONOCYTES % (AUTO) 5.5 % (2.0-12.0); NEUTROPHILS # (AUTO) 8.4 /CMM (1.8-8.9); NEUTROPHILS % (AUTO) 84.5 % (43.0-81.0); PLATELET COUNT (AUTO) 215 /CMM (150-450); RED BLOOD CELL COUNT(AUTO) 2.59 MIL/uL (4.5-6.0); WHITE BLOOD COUNT (AUTO) 9.9 K/uL (4.3-11.0)
[2020-11-23] MEDS: PANTOPRAZOLE 40 MG TABLET.DR PO SCH (06:32)
--- NOTE | 2020-11-23 07:03 | NUR ---
RELAY OPERATOR CLOSING NOTES PATIENT AWAKE IN BED WATCHING TV. A/OX2-3. ON RA; NO S/S OF ACUTE RESPIRATORY DISTRESS; BREATHING IS EVEN AND UNLABORED; CONTINUOUS PULSE OX READING 956%. TELE MONITOR READING A-FIB, HEART RATE 120S. SOFT BILATERAL WRIST RESTRAINTS CURRENTLY OFF; PATIENT CALM AND COOPERATIVE AT THIS TIME. MIDLINE PRESENT ON RIGHT UPPER ARM, INTACT & PATENT, HEP LOCKED. SAFETY MEASURES IN PLACE AND PATIENT'S NEEDS MET. BED LOCKED, HOB ELEVATED, SIDE RAILS X2, CALL LIGHT WITHIN REACH. WILL ENDORSE TO DAY SHIFT RN PLAN OF CARE.
--- NOTE | 2020-11-23 07:37 | NUR ---
URGENT CARE PHYSICIAN ASSISTANT CLOSING NOTES RECEIVED PATIENT RESTING IN BED, A/OX2-3. ON RA; WITH NO S/S OF ACUTE RESPIRATORY DISTRESS; BREATHING EVEN AND UNLABORED. PATIENT ON TELE MONITOR READING UNCONTROLLED A-FIB WITH HEART RANGING IN THE LOW 100-120. PATIENT WITH SOFT BILATERAL WRIST RESTRAINTS ORDERS, CURRENTLY OFF. PATIENT CALM AND COOPERATIVE AT THIS TIME. MIDLINE TO RIGHT UPPER ARM, INTACT & PATENT, HEP LOCKED. SAFETY MEASURES IN PLACE AND PATIENT'S NEEDS MET. BED IS AT LOW POSITION AND LOCKED, WITH HOB ELEVATED, AND SIDE RAILS UPX2, AND CALL LIGHT WITHIN REACH. WILL CONTINUE TO MONITOR THROUGH OUT SHIFT.
[2020-11-23] MEDS: GLUCERNA SHAKE 237 ML CAN PO SCH ×2 (08:00→16:52)
[2020-11-23 08:21] LABS: OCCULT BLOOD STOOL POSITIVE (NEGATIVE)
[2020-11-23] MEDS: Z GUARD REMEDY 2 OZ OINT TP SCH (09:36)
[2020-11-23] MEDS: ASPIRIN 81 MG TAB.CHEW PO SCH (09:42)
[2020-11-23] MEDS: AMLODIPINE BESYLATE 5 MG TABLET PO SCH (09:43)
[2020-11-23] MEDS: METOPROLOL TARTRATE 50 MG TABLET PO SCH ×2 (09:43→21:58)
[2020-11-23] MEDS: CLOPIDOGREL BISULFATE 75 MG TABLET PO SCH (09:44)
[2020-11-23] MEDS: ENOXAPARIN SODIUM 100 MG/ML DISP.SYRIN SQ SCH ×2 (09:45→21:54)
[2020-11-23] MEDS ORDERED: QUETIAPINE FUMARATE 25 MG TABLET PO PRN (14:00)
[2020-11-23] MEDS ORDERED: QUETIAPINE FUMARATE 25 MG TABLET PO ONE (14:00)
[2020-11-23] MEDS ORDERED: METOPROLOL TARTRATE 50 MG TABLET PO ONE (14:15)
--- NOTE | 2020-11-23 18:40 | NUR ---
MAMMOGRAPHER CLOSING NOTES PATIENT RESTING IN BED, A/O X2-3, CONFUSED. PATIENT IS ON RA; WITH NO S/S OF ACUTE RESPIRATORY DISTRESS; BREATHING EVEN AND UNLABORED. PATIENT ON TELE MONITOR READING UNCONTROLLED A-FIB WITH HEART RANGING IN THE LOW 100-120. PATIENT WAS CONFUSED THROUGH SHIFT ATTEMPTING TO GET OUT OF BED AND PULLED OUT RU MIDLINE. PATIENT WITH SOFT BILATERAL WRIST RESTRAINTS ON, Q2H CIRCULATION CHECK DONE. MD WAS ROUNDING ON PATIENT DURING THIS EPISODE, SEROQUEL WAS ORDERED. MIDLINE PLACED TO TO LT UPPER ARM, INTACT & PATENT, HEP LOCKED. ALL SAFETY MEASURES IN PLACE AND PATIENT'S NEEDS MET. BED IS AT LOW POSITION AND LOCKED, WITH HOB ELEVATED, AND SIDE RAILS UPX2, AND CALL LIGHT WITHIN REACH. WILL ENDORSE TO ONCOMING SHIFT.
[2020-11-23 20:00] VITALS: BP 159/84
[2020-11-24] VITALS: BP 137/91
[2020-11-24] MEDS: MEROPENEM 1 G in IV NS 0.9% 100 ML IV SCH ×2 (02:25→09:00)
[2020-11-24 07:20] LABS: BASOPHILS % (AUTO) 0.1 % (0.0-2.0); EOSINOPHILS % (AUTO) 1.4 % (0.0-6.0); HEMATOCRIT 24 % (39-51); HEMOGLOBIN 7.6 g/dL (13.5-17.5); LYMPHOCYTES # (AUTO) 0.9 /CMM (0.8-4.8); LYMPHOCYTES % (AUTO) 8.8 % (20.0-44.0); MEAN CORPUSCULAR HGB CONC 32 g/dl (31.0-36.0); MEAN CORPUSCULAR VOLUME 100 fL (80-96); MONOCYTES # (AUTO) 0.6 /CMM (0.1-1.30); MONOCYTES % (AUTO) 6.3 % (2.0-12.0); NEUTROPHILS # (AUTO) 8.5 /CMM (1.8-8.9); NEUTROPHILS % (AUTO) 83.4 % (43.0-81.0); PLATELET COUNT (AUTO) 177 /CMM (150-450); RED BLOOD CELL COUNT(AUTO) 2.41 MIL/uL (4.5-6.0); WHITE BLOOD COUNT (AUTO) 10.2 K/uL (4.3-11.0)
--- NOTE | 2020-11-24 07:30 | NUR ---
TELE/RN OPENING NOTE Received patient resting in bed, A&O x 2, able to make needs known. No complaints of pain/discomfort at this time. Breathing even and non-labored on 2L oxygen via NC, saturating at 100%. No respiratory or cardiac distress noted. On tele monitor, reading afib 120. INES midline access noted, patent and intact, and flushing well. Bilateral soft wrist restraints noted, checked both arms for circulation and sensation, intact. Bed locked to its lowest position, side rails x 2 up, call light in hand. Will continue with current medical management.
[2020-11-24 07:53] LABS: CALCIUM, SERUM 8.3 mg/dL (8.5-10.1); CARBON DIOXIDE 25 mmol/L (21-32); CHLORIDE 113 mmol/L (98-107); CREATININE 1.4 mg/dL (0.6-1.3); GLUCOSE 248 mg/dL (74-106); PHOSPHORUS 3.1 mg/dL (2.5-4.9); POTASSIUM 4.5 mmol/L (3.5-5.1); SODIUM SERUM 148 mmol/L (136-145); UREA NITROGEN, BLOOD 35 mg/dL (7-18)
[2020-11-24 08:00] VITALS: BP 136/87
--- NOTE | 2020-11-24 08:00 | NUR ---
TELE/RN NOTE ST at bedside, per ST, patient coughs upon eating regular consistency meal and regular thin fluids. So ST ordered to change diet consistency to mechanical soft chopped and nectar thickened fluids. Orders carried out.
[2020-11-24] MEDS: PANTOPRAZOLE 40 MG TABLET.DR PO SCH ×2 (08:35→16:11)
[2020-11-24] MEDS: GLUCERNA SHAKE 237 ML CAN PO SCH ×2 (08:36→16:11)
[2020-11-24] MEDS: CLOPIDOGREL BISULFATE 75 MG TABLET PO SCH (08:56)
[2020-11-24] MEDS: METOPROLOL TARTRATE 50 MG TABLET PO SCH ×2 (08:57→21:29)
[2020-11-24] MEDS: AMLODIPINE BESYLATE 5 MG TABLET PO SCH (08:57)
[2020-11-24] MEDS: ASPIRIN 81 MG TAB.CHEW PO SCH (08:57)
[2020-11-24] MEDS: ENOXAPARIN SODIUM 100 MG/ML DISP.SYRIN SQ SCH ×2 (08:59→21:28)
[2020-11-24] MEDS: Z GUARD REMEDY 2 OZ OINT TP SCH (09:01)
--- NOTE | 2020-11-24 10:56 | NUR ---
TELE/RN NOTE Collected urine for urinalysis and urine culture. Called lab for burr picker.
[2020-11-24 12:00] VITALS: BP 119/80
--- NOTE | 2020-11-24 12:30 | NUR ---
TELE/RN NOTE Dr. Heath at bedside, ordered to check H&H in the afternoon and protonix [address] Heath, hold lovenox due to previous episodes of black tarry stools. Notified Heather CASE. Addendum: 11/24/20 at 1250 by RANJANA STROUD RN Heather CASE ok-ed to dc lovenox for now. Order carried out.
[2020-11-24 13:03] LABS: BILIRUBIN,URINE NEGATIVE (NEGATIVE); COLOR,URINE YELLOW (YELLOW); LEUKOCYTE ESTERASE ,URINE NEGATIVE (NEGATIVE); NITRITE, URINE NEGATIVE (NEGATIVE); PH,URINE 5.5 (5.0-8.0); PROTEIN,URINE 30 mg/dl (NEGATIVE); UGLUCOSE 500 MG/DL mg/dL (NEGATIVE); UROBILINOGEN,URINE 0.2 EU/dL (0.2)
[2020-11-24 13:41] LABS: BACTERIA,URINE Few /HPF (None Seen); SQUAMOUS EPITHELIAL CELL,UR Few /HPF (None Seen); URIC ACID CRYSTALS,URINE Moderate /HPF (None Seen); YEAST,URINE Few /HPF (None Seen)
[2020-11-24 15:23] LABS: HEMOGLOBIN 7.4 g/dL (13.5-17.5)
--- NOTE | 2020-11-24 15:30 | NUR ---
TELE/RN NOTE Dr. Heath called to notify that patient will have EGD procedure tomorrow. Ordered the following: Consent for EGD, NPO after midnight, and hold lovenox after midnight. Orders carried out.
--- NOTE | 2020-11-24 15:45 | NUR ---
TELE/RN NOTE Spoke with son, Matteo Wells regarding patient's procedure tomorrow. Son gave telephone consent for patient's EGD tomorrow but requests to talk to Dr. Heath prior to procedure tomorrow. Addendum: 11/24/20 at 1606 by RANJANA STROUD RN Notified Dr. Heath about patient's son and gave him his number, states he will call patient's son. In addition, Dr. Heath ordered H&H in the morning to check for stabilization. Orders carried out.
--- NOTE | 2020-11-24 16:38 | NUR ---
TELE/RN NOTE Dr. Heath called after speaking with son Matteo, son changed his mind and refuses EGD procedure or any aggressive procedures for patient. Per Dr. Heath, cancel EGD procedure tomorrow, continue protonix 40 mg BID. In addition, Dr. Heath stated that if patient has any s/s of active bleeding including tarry stools, hold lovenox. Orders carried out. Addendum: 11/24/20 at 1648 by RANJANA STROUD RN In addition to above, he stated to hold lovenox if HGB drops significantly. Addendum: 11/24/20 at 165 by RANJANA STROUD RN Confirmed with Heather to continue previous lovenox order: Lovenox 90 mg q12h subcutaneous. Order carried out.
--- NOTE | 2020-11-24 18:52 | NUR ---
TELE/RN CLOSING NOTE Patient awake in bed, A&O x 2, periods of confusion still present. Denies any complaints of pain/discomfort throughout shift. Breathing even and non-labored on 2L oxygen via NC, saturating at 100%. No respiratory or cardiac distress noted. On tele monitor, reading afib 110. INES midline access remained patent and intact, and flushing well. Bilateral soft wrist restraints in place, checked both arms for circulation and sensation, remains intact. Left foot dressing done and remains clean and dry. Fall precautions maintained. Will endorse to state highway police officer nurse.
[2020-11-24 20:00] VITALS: BP 161/76
--- NOTE | 2020-11-24 21:23 | NUR ---
RESTRAINTS REMOVED. PT AXOX2 REORIENTED TO TIME. VERBALIZED UNDERSTANDING TO NOT REMOVE IV LINES OR TELEMETRY BOX. WILL CONT TO MONITOR FOR CONFUSION.
[2020-11-24] MEDS: QUETIAPINE FUMARATE 25 MG TABLET PO SCH (21:29)
[2020-11-25] VITALS (7 sets, daily range): BP systolic 90–140; BP diastolic 56–77
[2020-11-25 06:51] LABS: HEMOGLOBIN 8.6 g/dL (13.5-17.5)
--- NOTE | 2020-11-25 06:58 | NUR ---
RN PM CLOSING NOTE PT IN BED A/OX2 FORGETFUL, SEEN WITH EYES CLOSED AT THIS TIME. PT HAD PERIODS OF PERIODS OF CONFUSION LAST NIGHT. DENIES PAIN. ON RA SATURATINT AT 95% RR OF 22. NO APPARENT DISTRESS. ON TELE MONITOR READING OF AFIB. INES MIDLINE INTACT PATENT COVRED WITH ARM SLEAVE. RESTRATINTS REMOVED LAST NIGHT. PT DID NOT ATTEMPT TO REMOVE IV LINE. LEFT FOOT DRESSING CDI. FALL PRECAUTIONS IN PLACE WILL ENDORSE TO ONCOMING NURSE.
--- NOTE | 2020-11-25 07:47 | NUR ---
DECK ENGINEER OPEN NOTES PATIENT IS A/O X 2 WITH NO SIGNS OF DISTRESS IN ROOM AIR. L UA MIDLINE. TELE MONITOR UNCONTROLLED A-FIB 100-120'S. NO COMPLAIN OF PAIN AT THIS TIME. SAFETY MEASURES ARE APPLIED, BED IS IN LOW POSITION SIDE RAILS UP X 2. CALL LIGHT WITHIN REACH. WILL CONTINUE TO MONITOR.
[2020-11-25] MEDS: ENOXAPARIN SODIUM 100 MG/ML DISP.SYRIN SQ SCH ×2 (09:00→20:58)
[2020-11-25] MEDS: AMLODIPINE BESYLATE 5 MG TABLET PO SCH (09:00)
[2020-11-25] MEDS: METOPROLOL TARTRATE 50 MG TABLET PO SCH ×2 (09:00→21:24)
[2020-11-25] MEDS: PANTOPRAZOLE 40 MG TABLET.DR PO SCH ×2 (09:31→16:31)
[2020-11-25] MEDS: ASPIRIN 81 MG TAB.CHEW PO SCH (09:31)
[2020-11-25] MEDS: CLOPIDOGREL BISULFATE 75 MG TABLET PO SCH (09:39)
--- NOTE | 2020-11-25 09:40 | NUR ---
HELD LOVENOX PATIENT HAD BLACK TARRY STOOL THIS MORNING. WILL CONTINUE TO MONITOR.
[2020-11-25] MEDS: GLUCERNA SHAKE 237 ML CAN PO SCH ×2 (09:41→16:30)
[2020-11-25] MEDS: Z GUARD REMEDY 2 OZ OINT TP SCH (09:41)
[2020-11-25] MEDS: IV 1/2NS 1000 ML 1,000 ML IV PRN (18:43)
--- NOTE | 2020-11-25 20:02 | NUR ---
TEXTILE CONSERVATOR OPENING NOTE Patient asleep in bed, A/O x2, confused. Tele monitor reading uncontrolled a-fib. Breathing even, unlabored on room air, O2sat 95%. Skin is warm, pink, dry, appropriate for ethnicity. 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 Wound dressing clean, and intact. Sacral redness noted, mepilex dressing in place. IV site INES midline, saline locked, IV site patent and intact, no signs of redness or infiltration. Abdomen round, soft, non- tender. Patient on cardiac diet, tolerating well. Bed in low position, wheels locked, side rails up x2, call light within reach.
--- NOTE | 2020-11-25 20:33 | NUR ---
COTTRELL BLOWER CLOSING NOTES PATIENT IS A/O X 2 WITH NO SIGNS OF DISTRESS IN ROOM AIR. L UA MIDLINE INTACT RUNNING 1/2 NS AT 60 ML/HR. TELE MONITOR UNCONTROLLED A-FIB 100-120'S. NO COMPLAIN OF PAIN AT THIS TIME. PATIENT KEPT CLEAN AND DRY. ALL NEEDS, CARE, TREATMENT,AND MEDICATIONS WERE ADMINISTERED ANTICIPATED PER ORDER. SAFETY MEASURES ARE APPLIED, BED IS IN LOW POSITION SIDE RAILS UP X 2. CALL LIGHT WITHIN REACH WILL ENDORSE TO THE LEGAL WRITING PROFESSOR NURSE.
[2020-11-25 20:44] LABS: HEMOGLOBIN 6.8 g/dL (13.5-17.5)
--- NOTE | 2020-11-25 20:58 | NUR ---
MANAGER PSYCHOLOGY NOTE Lab called for critical lab result: Hgb 6.8 Hct 22 @ 2049. Hospitalist notified at 2055. Awaiting new orders. Will continue to monitor.
[2020-11-25] MEDS: QUETIAPINE FUMARATE 25 MG TABLET PO SCH (21:24)
--- NOTE | 2020-11-25 22:54 | NUR ---
RESP THERAPIST NOTE Received order for acute medical bilateral soft wrist restraints per Laverne. Patient pulling out IV lines. Skin is intact. Radial pulse 2+, symmetrical. Will continue to monitor.
--- NOTE | 2020-11-25 23:16 | NUR ---
TUBE TURNER NOTE Lovenox held d/t hgb 6.8 hct 22
[2020-11-26] VITALS (13 sets, daily range): BP systolic 113–151; BP diastolic 66–93
--- NOTE | 2020-11-26 03:24 | NUR ---
STACKER NOTE Patient received 1 unit PRBC d/t low hgb. Patient tolerated well. No adverse reactions noted. Vital signs stable. Transfusion completed @ 0310.
[2020-11-26 05:58] LABS: BASOPHILS % (AUTO) 0.2 % (0.0-2.0); EOSINOPHILS % (AUTO) 0.8 % (0.0-6.0); HEMATOCRIT 25 % (39-51); HEMOGLOBIN 7.8 g/dL (13.5-17.5); LYMPHOCYTES % (AUTO) 9.6 % (20.0-44.0); MEAN CORPUSCULAR HGB CONC 32 g/dl (31.0-36.0); MEAN CORPUSCULAR VOLUME 101 fL (80-96); MONOCYTES # (AUTO) 0.9 /CMM (0.1-1.30); MONOCYTES % (AUTO) 8.3 % (2.0-12.0); NEUTROPHILS # (AUTO) 8.8 /CMM (1.8-8.9); NEUTROPHILS % (AUTO) 81.1 % (43.0-81.0); PLATELET COUNT (AUTO) 176 /CMM (150-450); RED BLOOD CELL COUNT(AUTO) 2.43 MIL/uL (4.5-6.0); WHITE BLOOD COUNT (AUTO) 10.8 K/uL (4.3-11.0)
--- NOTE | 2020-11-26 06:03 | NUR ---
GARDEN TRACTOR MECHANIC CLOSING NOTE Patient asleep in bed, A/O x2, confused. Tele monitor reading uncontrolled a-fib, 100's-130's. Breathing even, unlabored on room air, O2sat 97%. Skin is warm, pink, dry, appropriate for ethnicity. 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 Wound dressing clean, and intact. Sacral redness noted, mepilex dressing changed. IV site INES midline, saline locked, IV site patent and intact, no signs of redness or infiltration. All needs met. Bed in low position, wheels locked, side rails up x2, call light within reach.
[2020-11-26 06:16] LABS: CALCIUM, SERUM 8.1 mg/dL (8.5-10.1); CARBON DIOXIDE 25 mmol/L (21-32); CHLORIDE 114 mmol/L (98-107); CREATININE 1.5 mg/dL (0.6-1.3); GLUCOSE 276 mg/dL (74-106); PHOSPHORUS 3.4 mg/dL (2.5-4.9); POTASSIUM 4.6 mmol/L (3.5-5.1); SODIUM SERUM 148 mmol/L (136-145); UREA NITROGEN, BLOOD 38 mg/dL (7-18)
[2020-11-26] MEDS: GLUCERNA SHAKE 237 ML CAN PO SCH ×2 (08:00→17:55)
--- NOTE | 2020-11-26 08:00 | NUR ---
RN OPENING NOTE Patient is resting in bed, A/O x2 with periods of confusion saturating 100% on RA. Patient denies any pain or discomfort at this time. Patient is bedbound, turned and repositioned, skin protection measures implemented. Bed is in lowest position, side rails x2 in upright position, call light is within reach, fall safety and aspiration precautions enforced. Will continue with plan of care.
[2020-11-26] MEDS: ENOXAPARIN SODIUM 100 MG/ML DISP.SYRIN SQ SCH (09:00)
[2020-11-26] MEDS: ASPIRIN 81 MG TAB.CHEW PO SCH (09:49)
[2020-11-26] MEDS: PANTOPRAZOLE 40 MG TABLET.DR PO SCH ×2 (09:49→17:03)
[2020-11-26] MEDS: AMLODIPINE BESYLATE 5 MG TABLET PO SCH (09:49)
[2020-11-26] MEDS: METOPROLOL TARTRATE 50 MG TABLET PO SCH ×2 (09:50→21:08)
[2020-11-26] MEDS: Z GUARD REMEDY 2 OZ OINT TP SCH (09:51)
--- NOTE | 2020-11-26 09:51 | NUR ---
RN NOTE DC LOVENOX AND PLAVIX PER DR. VILLA D/T LOW H&H, TARRY STOOLS, POSITIVE STOOL OB. OK TO KEEP PATIENT ON ASA PER DR. VILLA.
[2020-11-26] MEDS: DILTIAZEM HCL 30 MG TABLET PO SCH ×2 (12:22→17:04)
[2020-11-26 16:24] LABS: HEMOGLOBIN 7.5 g/dL (13.5-17.5)
[2020-11-26] MEDS: IV 1/2NS 1000 ML 1,000 ML IV PRN (17:55)
--- NOTE | 2020-11-26 18:48 | NUR ---
RN CLOSING NOTE Patient is resting in bed, A/O x2 with periods of confusion saturating 97% on RA. Patient denies any pain or discomfort at this time. Patient is bedbound, turned and repositioned, skin protection measures implemented. All patient needs met, all due medications given, patient kept clean and dry throughout shift. Bed is in lowest position, side rails x2 in upright position, call light is within reach, fall safety and aspiration precautions enforced. Will endorse to tablet technician for ARELY.
[2020-11-26] MEDS: QUETIAPINE FUMARATE 25 MG TABLET PO SCH (21:09)
[2020-11-27] MEDS: DILTIAZEM HCL 30 MG TABLET PO SCH ×4 (00:37→17:00)
[2020-11-27 00:57] VITALS: BP 115/74
[2020-11-27 04:32] VITALS: BP 138/92
[2020-11-27 06:54] LABS: CALCIUM, SERUM 7.4 mg/dL (8.5-10.1); CARBON DIOXIDE 28 mmol/L (21-32); CHLORIDE 114 mmol/L (98-107); CREATININE 1.6 mg/dL (0.6-1.3); GLUCOSE 221 mg/dL (74-106); MAGNESIUM 2.6 mg/dL (1.8-2.4); PHOSPHORUS 2.4 mg/dL (2.5-4.9); POTASSIUM 3.9 mmol/L (3.5-5.1); SODIUM SERUM 148 mmol/L (136-145); UREA NITROGEN, BLOOD 33 mg/dL (7-18)
[2020-11-27 07:07] LABS: BASOPHILS % (AUTO) 0.2 % (0.0-2.0); EOSINOPHILS % (AUTO) 3.4 % (0.0-6.0); HEMATOCRIT 22 % (39-51); HEMOGLOBIN 7.1 g/dL (13.5-17.5); LYMPHOCYTES # (AUTO) 1.2 /CMM (0.8-4.8); LYMPHOCYTES % (AUTO) 11.7 % (20.0-44.0); MEAN CORPUSCULAR HGB CONC 33 g/dl (31.0-36.0); MEAN CORPUSCULAR VOLUME 102 fL (80-96); MONOCYTES # (AUTO) 0.6 /CMM (0.1-1.30); NEUTROPHILS % (AUTO) 78.7 % (43.0-81.0); PLATELET COUNT (AUTO) 181 /CMM (150-450); RED BLOOD CELL COUNT(AUTO) 2.14 MIL/uL (4.5-6.0); WHITE BLOOD COUNT (AUTO) 10.1 K/uL (4.3-11.0)
--- NOTE | 2020-11-27 07:30 | NUR ---
RN OPENING NOTE PATIENT IN BED, SLEEPING. ALERT/ORIENTED X2 WITH PERIODS OF CONFUSION. OXYGEN SATURATION 94% ON ROOM AIR. PATIENT IS CURRENTLY BEDBOUND, SKIN PROTECTION MEASURES IMPLEMENTED. PATIENT HAS INES MIDLINE RUNNING 0.45% NS @ 60ML/HR. IV INTACT AND PATENT, NO S/S OF INFECTION AT THIS TIME. PATIENT HAS SOFT WRIST RESTRAINTS ORDERED. CIRCULATION CHECKED, WNL. BED LOCKED IN LOWEST POSITION, SIDE RAILS UP X2. ALL SAFETY MEASURES IN PLACE PER HOSPITAL POLICY. CALL LIGHT WITHIN REACH. WILL CONTINUE TO MONITOR AND PROVIDE CARE.
[2020-11-27 08:00] VITALS: BP 149/76
[2020-11-27] MEDS: GLUCERNA SHAKE 237 ML CAN PO SCH ×2 (08:40→17:00)
[2020-11-27] MEDS: AMLODIPINE BESYLATE 5 MG TABLET PO SCH (08:41)
[2020-11-27] MEDS: PANTOPRAZOLE 40 MG TABLET.DR PO SCH ×2 (08:41→16:56)
[2020-11-27] MEDS: METOPROLOL TARTRATE 50 MG TABLET PO SCH (08:41)
[2020-11-27] MEDS: Z GUARD REMEDY 2 OZ OINT TP SCH (08:42)
[2020-11-27] MEDS: IV 1/2NS 1000 ML 1,000 ML IV PRN (10:04)
[2020-11-27] MEDS ORDERED: DILT30TA14 PO (10:19)
[2020-11-27] MEDS ORDERED: AMLO-212 PO (10:19)
[2020-11-27] MEDS ORDERED: METO50TA16 PO (10:19)
[2020-11-27] MEDS ORDERED: NUT.237L45 PO (10:19)
[2020-11-27] MEDS ORDERED: PANT40TA2 PO (11:25)
[2020-11-27 12:00] VITALS: BP 148/83
--- NOTE | 2020-11-27 15:45 | NUR ---
REPORT FOR DISCHARGE GIVEN TO AREN HOPPER AT [facility].
[2020-11-27 16:00] VITALS: BP 138/85
[2020-11-27] MEDS ORDERED: K PHOS NEUTRAL 250 MG TABLET PO ONE (16:30)
[2020-11-27 17:00] VITALS: BP 138/85
[2020-11-27] MEDS ORDERED: NEUTRA PHOS 1 POWD.PACKET PO ONE (17:00)
--- NOTE | 2020-11-27 17:35 | NUR ---
DISCHARGE PATIENT DISCHARGED TO [facility]. LEFT VIA [facility] WITH AMBULANCE. REPORT GIVEN TO SALVADOR ALFONSO. IV REMOVED PRIOR WITH NO S/S OF EXCESSIVE BLEEDING. PATIENT IS STABLE CONDITION AT TIME OF DISCHARGE. LEFT WITH ALL BELONGINGS WITH THE PATIENT.
== END 2020-11-27 17:35 | DRG 177 ==
LOC: ER 22:50 → TRANSITION 11-14 02:06 → TELE1 11-14 17:04
PROVIDERS: ADMIT Nurse Practitioner Acute Care; ATTEND Nurse Practitioner Acute Care
PROC: XW13325 Transfusion of Convalescent Plasma (Nonautologous) into Peripheral Vein, Percutaneous Approach, New Technology Group 5 (ICD-10-PCS; 2020-11-14)
PROC: XW033E5 Introduction of Remdesivir Anti-infective into Peripheral Vein, Percutaneous Approach, New Technology Group 5 (ICD-10-PCS; principal; 2020-11-16)
PROC: 05HY33Z Insertion of Infusion Device into Upper Vein, Percutaneous Approach (ICD-10-PCS; 2020-11-18)
PROC: 30233N1 Transfusion of Nonautologous Red Blood Cells into Peripheral Vein, Percutaneous Approach (ICD-10-PCS; 2020-11-21)
PROC: 05H933Z Insertion of Infusion Device into Right Brachial Vein, Percutaneous Approach (ICD-10-PCS; 2020-11-21)
DX: U07.1 COVID-19 (principal); I21.A1 Myocardial infarction type 2; J96.01 Acute respiratory failure with hypoxia; J12.89 Other viral pneumonia; N17.0 Acute kidney failure with tubular necrosis; G93.41 Metabolic encephalopathy; D68.59 Other primary thrombophilia; L03.116 Cellulitis of left lower limb; M86.9 Osteomyelitis, unspecified; I16.1 Hypertensive emergency; I82.402 Acute embolism and thrombosis of unspecified deep veins of left lower extremity; E22.2 Syndrome of inappropriate secretion of antidiuretic hormone; I96 Gangrene, not elsewhere classified; E11.52 Type 2 diabetes mellitus with diabetic peripheral angiopathy with gangrene; E87.0 Hyperosmolality and hypernatremia; J90 Pleural effusion, not elsewhere classified; K92.2 Gastrointestinal hemorrhage, unspecified; I10 Essential (primary) hypertension; B96.1 Klebsiella pneumoniae [K. pneumoniae] as the cause of diseases classified elsewhere; Z87.891 Personal history of nicotine dependence; I25.10 Atherosclerotic heart disease of native coronary artery without angina pectoris; D63.8 Anemia in other chronic diseases classified elsewhere; E11.40 Type 2 diabetes mellitus with diabetic neuropathy, unspecified; E11.621 Type 2 diabetes mellitus with foot ulcer; L97.529 Non-pressure chronic ulcer of other part of left foot with unspecified severity; E78.5 Hyperlipidemia, unspecified; Z74.09 Other reduced mobility; Z79.01 Long term (current) use of anticoagulants; Z89.432 Acquired absence of left foot; I48.91 Unspecified atrial fibrillation; Z79.82 Long term (current) use of aspirin; Z79.899 Other long term (current) drug therapy; Z95.1 Presence of aortocoronary bypass graft; E11.69 Type 2 diabetes mellitus with other specified complication; M62.562 Muscle wasting and atrophy, not elsewhere classified, left lower leg; M62.561 Muscle wasting and atrophy, not elsewhere classified, right lower leg; R26.9 Unspecified abnormalities of gait and mobility; E11.622 Type 2 diabetes mellitus with other skin ulcer; I11.0 Hypertensive heart disease with heart failure
CPT/HCPCS: 36415; 71045-TC; 80048-TC; 80053-TC; 80061-TC; 80076-TC; 80202-TC; 81001; 82272-TC; 82550-TC; 82728-TC; 82962-TC; 83540-TC; 83615-TC; 83735-TC; 83880; 84100-TC; 84443-TC; 84484-TC; 85025-TC; 85027-TC; 85378-TC; 85610-TC; 85730-TC; 86140-TC; 86803; 86850-TC; 87040-TC; 87070-TC; 87081-TC; 87086-TC; 92526; 92611-TC; A4216; A6403; C9803; G0378; J0360; J0696; J1100; J1650; J1940; J2185; J2270; J2405; J3370; J3490; J7030; J7040; J7050; J7060; P9016-BL; P9017-BL; Q9967; U0003